=== PATIENT | female | born 1955 | race Caucasian/White ===

== ENCOUNTER 2017-10-29 03:32 | Inpatient (IN) | payer MEDICAID ==
[2017-10-29] VITALS (17 sets, daily range): BP systolic 67–141; BP diastolic 44–89
[~2017-10-29] VITALS: Ht 167.6 cm; Wt 56.5 kg
[~2017-10-29 03:32] MED LIST: ATRIN INH; BUDE10.2 INH; COMIN IH; MONT10TA21 PO; [UNRECOGNIZED DRUG - CODE] MC
[2017-10-29] MEDS ORDERED: methylPREDNISolone sod succ 125mg/2ml vial IV ONE (03:45)
[2017-10-29] MEDS ORDERED: midazolam 100mg in NS 100ml 100 ML IV PRN (04:05)
[2017-10-29] MEDS ORDERED: MIDAZolam 5mg/ml 2ml vial IV ONE (04:05)
[2017-10-29] MEDS ORDERED: fentaNYL/PF 50MCG/1 ML 2ML syringe IV ONE (04:05)
[2017-10-29 04:25] LABS: BASOPHILS % (AUTO) 0.2 % (0-1); EOSINOPHILS # (AUTO) 0.3 X10'3 (0-0.9); EOSINOPHILS % (AUTO) 1.4 % (0-6); HEMATOCRIT 39.4 % (35.0-45.0); HEMOGLOBIN 12.4 g/dl (12.0-16.0); MEAN CORPUSCULAR HEMOGLOBIN 27.6 PG (27.0-31.0); MEAN CORPUSCULAR HGB CONC 31.6 % (33.0-36.5); MEAN CORPUSCULAR VOLUME 87.3 FL (78-98); MEAN PLATELET VOLUME 10.1 FL (7.4-10.4); MONOCYTES # (AUTO) 0.2 X10'3 (0-0.9); MONOCYTES % (AUTO) 1.1 % (2-12); NEUTROPHILS # (AUTO) 17.7 X10'3 (1.8-7.7); NEUTROPHILS % (AUTO) 83.3 % (42-75); PLATELET COUNT 141 X10'3 (140-440); RED BLOOD COUNT 4.51 X10'6 (4.20-5.60); RED CELL DISTRIBUTION WIDTH 16.5 % (11.5-14.5); WHITE BLOOD COUNT 21.2 X10'3 (4.5-11.0)
[2017-10-29] MEDS ORDERED: MIDAZOLAM IV SCH (04:30)
[2017-10-29] MEDS ORDERED: NORMAL SALINE IV SCH (04:30)
[2017-10-29] MEDS ORDERED: MIDAZOLAM IV PRN (04:30)
[2017-10-29] MEDS ORDERED: NORMAL SALINE IV PRN (04:30)
[2017-10-29 04:31] LABS: ABG BASE EXCESS 6.3 mmol/L (-2.0-3.0); ABG HCO3 35.4 mmol/L (22.0-26.0); ABG PCO2 (T) 80.3 mmHg (32.0-45.0); ABG PO2 (T) 223.7 mmHg (83-108); ALLEN'S TEST Positive; FCOHb 0.9 % (0.5-1.5); FMetHb 0.1 % (0.3-1.12); MINUTE VOLUME 7 L/min; PATIENT TEMPERATURE 36.5; PEEP 5 cm H2O; RESPIRATORY RATE 16 b/min; RESPIRATORY RATE (OBSERVED) 18 b/min; TIDAL VOLUME 400 mL; TOTAL HEMOGLOBIN 10.3 G/dl (12.0-16.0)
[2017-10-29 04:35] LABS: PARTIAL THROMBOPLASTIN TIME 23 SECONDS (22-32); PROTHROMBIN TIME 10.4 SECONDS (9.0-12.0)
[2017-10-29 04:43] LABS: CLARITY,URINE CLOUDY (Clear); COLOR,URINE YELLOW (Yellow); GLUCOSE, URINE NEGATIVE (Neg); KETONES,URINE NEGATIVE (Neg); LEUKOCYTE ESTERASE ,URINE NEGATIVE (Neg); NITRITES, URINE NEGATIVE (Neg); OCCULT BLOOD,URINE MODERATE (Neg); PH,URINE 7.5 (4.8-8.0); PROTEIN,URINE 30 mg/dl (Neg)
[2017-10-29] MEDS ORDERED: levoFLOXACIN-Levaquin 750MG/D5 150 ML IV STA (04:47)
[2017-10-29 04:49] LABS: BACTERIA,URINE FEW /HPF (Neg); SQUAMOUS EPITHELIAL CELL,UR FEW /LPF (FEW); UA COLLECTION TYPE FOLEY CATH; WBC,URINE NONE SEEN /HPF (0-4)
[2017-10-29 04:50] LABS: ALANINE AMINOTRANSFERASE 61 U/L (12-78); ALBUMIN 3.2 G/DL (3.4-5.0); ALBUMIN/GLOBULIN RATIO 1.1 (1.1-1.5); ALKALINE PHOSPHATASE 68 IU/L (46-116); ANION GAP -1 (8-16); ASPARTATE AMINO TRANSFERASE 21 U/L (10-37); BILIRUBIN,TOTAL 1.2 MG/DL (0.1-1.0); BLOOD UREA NITROGEN 21 MG/DL (7-18); BUN/CREATININE RATIO 45.7 (6.6-38.0); CALCIUM 9.3 MG/DL (8.5-10.1); CHLORIDE 110 MMOL/L (99-107); CREATININE 0.46 MG/DL (0.40-0.90); GLUCOSE 124 MG/DL (70-104); SODIUM 152 MMOL/L (135-145); TOTAL PROTEIN 6.1 G/DL (6.4-8.2); eGFR > 90 ML/MIN
[2017-10-29 04:50] LABS: AMORPHOUS PHOSPHATES 4+
[2017-10-29 04:56] LABS: ANISOCYTOSIS 1+; PLATELET ESTIMATE NORMAL; TOTAL CELLS COUNTED 100
[2017-10-29 04:57] LABS: TOTAL CARBON DIOXIDE 42.6 MMOL/L (24-32)
[2017-10-29 05:56] LABS: ABG BASE EXCESS 10.4 mmol/L (-2.0-3.0); ABG HCO3 32.1 mmol/L (22.0-26.0); ABG OXYGEN SATURATION 98.9 % (95-98); ABG PCO2 (T) 31.6 mmHg (32.0-45.0); ABG PH (T) 7.623 (7.350-7.450); ABG PO2 (T) 156.1 mmHg (83-108); ALLEN'S TEST Positive; FCOHb 0.7 % (0.5-1.5); FMetHb 0.3 % (0.3-1.12); FO2Hb 97.9 % (94-100); MINUTE VOLUME 10 L/min; PATIENT TEMPERATURE 36.5; PEEP 5 cm H2O; RESPIRATORY RATE 20 b/min; RESPIRATORY RATE (OBSERVED) 20 b/min; TIDAL VOLUME 450 mL; TOTAL HEMOGLOBIN 10.8 G/dl (12.0-16.0)
[2017-10-29] MEDS ORDERED: etomidate 2mg/ml inj. ONE ×2 (06:00→15:00)
[2017-10-29] MEDS ORDERED: ACET250T3 PO (06:03)
[2017-10-29] MEDS ORDERED: DILT180C95 PO (06:04)
[2017-10-29] MEDS ORDERED: FLUT16SP2 BOTHNARES (06:04)
[2017-10-29] MEDS ORDERED: INSU3INS2 (06:07)
[2017-10-29] MEDS ORDERED: INSU100V30 SQ (06:08)
[2017-10-29] MEDS ORDERED: PRED5TAB PO ×2 (06:09→06:10)
[2017-10-29] MEDS ORDERED: OMEP-50 (06:09)
[2017-10-29] MEDS ORDERED: LACT1CAP65 PO (06:11)
[2017-10-29] MEDS ORDERED: POTA10IV IV (06:13)
[2017-10-29] MEDS ORDERED: ACET-2119 PO (06:15)
[2017-10-29] MEDS ORDERED: normal saline 1000ml 1,000 ML IV SCH (06:29)
[2017-10-29] MEDS ORDERED: magnesium 2GM in 50ml NS 50 ML IV PRN (06:30)
[2017-10-29] MEDS: K, MAG and/or Phos replacement - Verify level? MC SCH ×2 (06:30→08:00)
[2017-10-29] MEDS ORDERED: magnesium 4gm in 100ml NS 100 ML IV PRN (06:30)
[2017-10-29] MEDS ORDERED: albuterol 2.5 MG/3 ML nebule NEB PRN (06:30)
[2017-10-29] MEDS ORDERED: potassium Cl 40MEQ/NS 500ml 500 ML IV PRN ×2 (06:30)
[2017-10-29] MEDS ORDERED: fentaNYL/PF 50MCG/1 ML 2ML syringe IV PRN (06:40)
[2017-10-29] MEDS ORDERED: midazolam 2 mg/2 ml injection IV ONE (06:40)
[2017-10-29] MEDS ORDERED: insulin Lispro (HumaLOG) vial - multi-dose SQ SCH (06:45)
[2017-10-29] MEDS ORDERED: MESSAGE TO PHARMACY PO ONE (06:45)
[2017-10-29] MEDS ORDERED: dextrose 50%-water 50ml dispensing syringe IV PRN ×2 (06:45)
[2017-10-29] MEDS ORDERED: glucagon, human recombinant 1mg kit SUBCUT PRN (06:45)
[2017-10-29] MEDS: methylPREDNISolone sod succ 125mg/2ml vial IV SCH ×4 (08:00→19:56)
[2017-10-29] MEDS: diltiazem CD 180mg cap (once-daily) PO SCH (08:00)
[2017-10-29] MEDS: ipratropium/albuterol 3ml nebule NEB SCH ×4 (08:00→18:59)
[2017-10-29] MEDS: levoFLOXACIN-Levaquin 750MG/D5 150 ML IV SCH (08:35)
[2017-10-29] MEDS: cefepime 1GM/NS ADD-VANTAGE 100 ML IV SCH ×2 (08:35→16:19)
[2017-10-29] MEDS: pantoprazole 40 MG vial IV SCH (08:36)
[2017-10-29] MEDS: FENTANYL-0.9 % NACL/PF 100 ML IV PRN (08:36)
[2017-10-29] MEDS: midazolam 100mg in NS 100ml 100 ML IV PRN (08:36)
[2017-10-29] MEDS: heparin, porcine 5000 units/ml vial SQ SCH ×2 (08:37→19:57)
[2017-10-29 09:01] LABS: HEMOGLOBIN A1C 6.8 % (4.5-6.2)
[2017-10-29 09:06] LABS: ABG BASE EXCESS 12.6 mmol/L (-2.0-3.0); ABG HCO3 34.6 mmol/L (22.0-26.0); ABG OXYGEN SATURATION 98.8 % (95-98); ABG PCO2 (T) 34.6 mmHg (32.0-45.0); ABG PH (T) 7.618 (7.350-7.450); ABG PO2 (T) 113.2 mmHg (83-108); ALLEN'S TEST Positive; FCOHb 0.8 % (0.5-1.5); FMetHb 0.1 % (0.3-1.12); FO2Hb 97.9 % (94-100); PEEP 5 cm H2O; RESPIRATORY RATE 14 b/min; RESPIRATORY RATE (OBSERVED) 14 b/min; TIDAL VOLUME 450 mL
[2017-10-29] MEDS ORDERED: NORepinephrine 8mg/ 250ml NS 250 ML IV SCH (09:10)
[2017-10-29 10:16] LABS: MAGNESIUM 1.6 MG/DL (1.5-2.4)
[2017-10-29 10:17] LABS: PHOSPHORUS 0.9 MG/DL (2.3-4.5)
[2017-10-29] MEDS ORDERED: sodium phosphate inj. 15 MMOL in dextrose 5%-water 150 ML IV PRN (10:18)
[2017-10-29] MEDS ORDERED: sodium phosphate inj. 30 MMOL in dextrose 5%-water 250 ML IV PRN (10:18)
[2017-10-29] MEDS: ringers solution, lacted 1,000 ML IV SCH ×2 (11:21→21:37)
[2017-10-29 12:05] LABS: ABG BASE EXCESS 7.7 mmol/L (-2.0-3.0); ABG HCO3 31.3 mmol/L (22.0-26.0); ABG OXYGEN SATURATION 96.2 % (95-98); ABG PO2 (T) 71.2 mmHg (83-108); ALLEN'S TEST Positive; FCOHb 0.9 % (0.5-1.5); FMetHb 0.1 % (0.3-1.12); FO2Hb 95.2 % (94-100); PATIENT TEMPERATURE 36.5; PEEP 5 cm H2O; RESPIRATORY RATE 12 b/min; RESPIRATORY RATE (OBSERVED) 12 b/min; TIDAL VOLUME 400 mL; TOTAL HEMOGLOBIN 10.5 G/dl (12.0-16.0)
[2017-10-29] MEDS: insulin regular, human vial - multi-dose SQ SCH ×2 (14:42→20:17)
[2017-10-29] MEDS ORDERED: NORepinephrine 1 mg/ml inj IV ONE (15:00)
[2017-10-29] MEDS ORDERED: amiodarone 50MG/ML inj IV ONE (15:00)
[2017-10-29] MEDS ORDERED: rocuronium 10mg/ml inj IV ONE (15:00)
[2017-10-29] MEDS: lactobacillus rhamnosus 10,000 MMU CELLS/CAPSULE PO SCH (19:56)
[2017-10-29] MEDS: insulin glargine (Lantus) pen - multi-dose SQ SCH (21:40)
[2017-10-30] VITALS (23 sets, daily range): BP systolic 97–143; BP diastolic 53–75
[2017-10-30] MEDS: cefepime 1GM/NS ADD-VANTAGE 100 ML IV SCH ×2 (00:13→07:41)
[2017-10-30] MEDS: FENTANYL-0.9 % NACL/PF 100 ML IV PRN (01:21)
[2017-10-30] MEDS: methylPREDNISolone sod succ 125mg/2ml vial IV SCH ×4 (02:40→20:12)
[2017-10-30] MEDS: insulin regular, human vial - multi-dose SQ SCH ×4 (02:52→20:35)
[2017-10-30] MEDS: ipratropium/albuterol 3ml nebule NEB SCH ×4 (03:00→19:27)
[2017-10-30 03:11] LABS: ABG BASE EXCESS 7.3 mmol/L (-2.0-3.0); ABG HCO3 32.1 mmol/L (22.0-26.0); ABG OXYGEN SATURATION 95.7 % (95-98); ABG PCO2 (T) 46.9 mmHg (32.0-45.0); ABG PH (T) 7.454 (7.350-7.450); ALLEN'S TEST Positive; FCOHb 0.8 % (0.5-1.5); FMetHb 0.1 % (0.3-1.12); FO2Hb 94.8 % (94-100); MINUTE VOLUME 6 L/min; PATIENT TEMPERATURE 37.2; PEEP 5 cm H2O; RESPIRATORY RATE 12 b/min; RESPIRATORY RATE (OBSERVED) 12 b/min; TIDAL VOLUME 400 mL; TOTAL HEMOGLOBIN 10.7 G/dl (12.0-16.0)
[2017-10-30 03:35] LABS: INR 1.1 INR; PARTIAL THROMBOPLASTIN TIME 30 SECONDS (22-32); PROTHROMBIN TIME 11.4 SECONDS (9.0-12.0)
[2017-10-30 03:39] LABS: ALANINE AMINOTRANSFERASE 40 U/L (12-78); ALBUMIN 2.3 G/DL (3.4-5.0); ALKALINE PHOSPHATASE 59 IU/L (46-116); ANION GAP 3 (8-16); ASPARTATE AMINO TRANSFERASE 18 U/L (10-37); BILIRUBIN,TOTAL 1.2 MG/DL (0.1-1.0); BLOOD UREA NITROGEN 23 MG/DL (7-18); BUN/CREATININE RATIO 43.4 (6.6-38.0); CALCIUM 8.2 MG/DL (8.5-10.1); CHLORIDE 108 MMOL/L (99-107); CREATININE 0.53 MG/DL (0.40-0.90); GLUCOSE 237 MG/DL (70-104); MAGNESIUM 1.4 MG/DL (1.5-2.4); PHOSPHORUS 2.2 MG/DL (2.3-4.5); POTASSIUM 3.8 MMOL/L (3.5-5.1); SODIUM 147 MMOL/L (135-145); TOTAL CARBON DIOXIDE 35.6 MMOL/L (24-32); TOTAL PROTEIN 4.7 G/DL (6.4-8.2); eGFR > 90 ML/MIN
[2017-10-30] MEDS: mineral oil/petrolatum ophthal oint EACHEYE SCH ×3 (07:29→20:00)
[2017-10-30] MEDS: K, MAG and/or Phos replacement - Verify level? MC SCH (07:31)
[2017-10-30] MEDS: diltiazem CD 180mg cap (once-daily) PO SCH (07:32)
[2017-10-30] MEDS: ringers solution, lacted 1,000 ML IV SCH (07:40)
[2017-10-30] MEDS: pantoprazole 40 MG vial IV SCH (07:41)
[2017-10-30] MEDS: levoFLOXACIN-Levaquin 750MG/D5 150 ML IV SCH (07:41)
[2017-10-30] MEDS: lactobacillus rhamnosus 10,000 MMU CELLS/CAPSULE PO SCH ×2 (07:41→20:13)
[2017-10-30] MEDS: heparin, porcine 5000 units/ml vial SQ SCH ×2 (07:44→20:13)
[2017-10-30 11:08] LABS: BASOPHILS % (AUTO) 0 % (0-1); EOSINOPHILS # (AUTO) 0.1 X10'3 (0-0.9); HEMOGLOBIN 9.5 g/dl (12.0-16.0); LYMPHOCYTES # (AUTO) 0.2 X10'3 (1.1-4.8); LYMPHOCYTES % (AUTO) 2.9 % (21-51); MEAN CORPUSCULAR HEMOGLOBIN 27.4 PG (27.0-31.0); MEAN CORPUSCULAR HGB CONC 32.7 % (33.0-36.5); MEAN CORPUSCULAR VOLUME 83.7 FL (78-98); MEAN PLATELET VOLUME 9.6 FL (7.4-10.4); MONOCYTES # (AUTO) 0.1 X10'3 (0-0.9); MONOCYTES % (AUTO) 1.6 % (2-12); NEUTROPHILS # (AUTO) 5.9 X10'3 (1.8-7.7); NEUTROPHILS % (AUTO) 94.5 % (42-75); PLATELET COUNT 88 X10'3 (140-440); RED BLOOD COUNT 3.46 X10'6 (4.20-5.60); WHITE BLOOD COUNT 6.3 X10'3 (4.5-11.0)
[2017-10-30] MEDS: linezolid 600mg/300ml PREMIX 300 ML IV SCH ×2 (13:19→20:13)
[2017-10-30] MEDS: diltiazem 30mg tablet PO SCH ×2 (14:20→20:13)
[2017-10-30] MEDS: insulin glargine (Lantus) pen - multi-dose SQ SCH (22:35)
[2017-10-31] VITALS (21 sets, daily range): BP systolic 86–130; BP diastolic 49–80
[2017-10-31] MEDS: midazolam 100mg in NS 100ml 100 ML IV PRN (00:48)
[2017-10-31] MEDS: FENTANYL-0.9 % NACL/PF 100 ML IV PRN (00:48)
[2017-10-31] MEDS: mineral oil/petrolatum ophthal oint EACHEYE SCH ×4 (02:00→20:00)
[2017-10-31] MEDS: methylPREDNISolone sod succ 125mg/2ml vial IV SCH ×4 (02:02→20:42)
[2017-10-31] MEDS: insulin regular, human vial - multi-dose SQ SCH ×2 (02:12→09:01)
[2017-10-31] MEDS: diltiazem 30mg tablet PO SCH ×4 (02:13→20:42)
[2017-10-31] MEDS: ipratropium/albuterol 3ml nebule NEB SCH ×4 (03:03→19:56)
[2017-10-31 03:24] LABS: BASOPHILS % (AUTO) 0 % (0-1); EOSINOPHILS # (AUTO) 0.2 X10'3 (0-0.9); EOSINOPHILS % (AUTO) 1.9 % (0-6); HEMATOCRIT 28.6 % (35.0-45.0); HEMOGLOBIN 9.4 g/dl (12.0-16.0); LYMPHOCYTES # (AUTO) 0.3 X10'3 (1.1-4.8); LYMPHOCYTES % (AUTO) 3.7 % (21-51); MEAN CORPUSCULAR HEMOGLOBIN 27.3 PG (27.0-31.0); MEAN CORPUSCULAR HGB CONC 32.9 % (33.0-36.5); MONOCYTES # (AUTO) 0.2 X10'3 (0-0.9); MONOCYTES % (AUTO) 1.9 % (2-12); NEUTROPHILS # (AUTO) 7.5 X10'3 (1.8-7.7); NEUTROPHILS % (AUTO) 92.5 % (42-75); PLATELET COUNT 89 X10'3 (140-440); RED BLOOD COUNT 3.45 X10'6 (4.20-5.60); RED CELL DISTRIBUTION WIDTH 16.2 % (11.5-14.5); WHITE BLOOD COUNT 8.1 X10'3 (4.5-11.0)
[2017-10-31 03:31] LABS: PARTIAL THROMBOPLASTIN TIME 28 SECONDS (22-32); PROTHROMBIN TIME 10.4 SECONDS (9.0-12.0)
[2017-10-31 03:37] LABS: ALANINE AMINOTRANSFERASE 41 U/L (12-78); ALBUMIN 2.3 G/DL (3.4-5.0); ALKALINE PHOSPHATASE 69 IU/L (46-116); ANION GAP 5 (8-16); ASPARTATE AMINO TRANSFERASE 16 U/L (10-37); BILIRUBIN,TOTAL 0.7 MG/DL (0.1-1.0); BLOOD UREA NITROGEN 19 MG/DL (7-18); BUN/CREATININE RATIO 42.2 (6.6-38.0); CALCIUM 8.1 MG/DL (8.5-10.1); CHLORIDE 107 MMOL/L (99-107); CREATININE 0.45 MG/DL (0.40-0.90); GLUCOSE 151 MG/DL (70-104); MAGNESIUM 2.5 MG/DL (1.5-2.4); PHOSPHORUS 2.4 MG/DL (2.3-4.5); POTASSIUM 3.6 MMOL/L (3.5-5.1); PREALBUMIN 18.7 MG/DL (19-36); SODIUM 149 MMOL/L (135-145); TOTAL CARBON DIOXIDE 36.9 MMOL/L (24-32); TOTAL PROTEIN 4.7 G/DL (6.4-8.2); eGFR > 90 ML/MIN
[2017-10-31 03:50] LABS: ABG BASE EXCESS 7.9 mmol/L (-2.0-3.0); ABG HCO3 33.7 mmol/L (22.0-26.0); ABG PO2 (T) 64.8 mmHg (83-108); ALLEN'S TEST Positive; FCOHb 0.3 % (0.5-1.5); FMetHb 0.1 % (0.3-1.12); FO2Hb 91.6 % (94-100); MINUTE VOLUME 5 L/min; PATIENT TEMPERATURE 36.9; PEEP 5 cm H2O; RESPIRATORY RATE 125 b/min; RESPIRATORY RATE (OBSERVED) 12 b/min; TIDAL VOLUME 350 mL; TOTAL HEMOGLOBIN 10.3 G/dl (12.0-16.0)
[2017-10-31] MEDS: levoFLOXACIN-Levaquin 750MG/D5 150 ML IV SCH (07:42)
[2017-10-31] MEDS: K, MAG and/or Phos replacement - Verify level? MC SCH (08:00)
[2017-10-31] MEDS: lactobacillus rhamnosus 10,000 MMU CELLS/CAPSULE PO SCH ×2 (08:31→20:42)
[2017-10-31] MEDS: pantoprazole 40 MG vial IV SCH (08:36)
[2017-10-31] MEDS: heparin, porcine 5000 units/ml vial SQ SCH ×2 (08:36→20:43)
[2017-10-31] MEDS: linezolid 600mg/300ml PREMIX 300 ML IV SCH ×2 (08:39→20:42)
[2017-10-31] MEDS: dextrose ORAL solution 15 GM/59 ML bottle PO PRN (17:36)
[2017-10-31] MEDS: insulin glargine (Lantus) pen - multi-dose SQ SCH (21:00)
[2017-11-01] VITALS (24 sets, daily range): BP systolic 94–145; BP diastolic 52–79
[2017-11-01] MEDS: ipratropium/albuterol 3ml nebule NEB SCH ×4 (01:34→21:21)
[2017-11-01] MEDS: mineral oil/petrolatum ophthal oint EACHEYE SCH ×4 (02:00→20:32)
[2017-11-01] MEDS: diltiazem 30mg tablet PO SCH ×4 (02:37→20:31)
[2017-11-01] MEDS: methylPREDNISolone sod succ 125mg/2ml vial IV SCH ×4 (02:37→20:32)
[2017-11-01 03:00] LABS: BASOPHILS % (AUTO) 0 % (0-1); EOSINOPHILS # (AUTO) 0.2 X10'3 (0-0.9); EOSINOPHILS % (AUTO) 1.9 % (0-6); HEMATOCRIT 30.6 % (35.0-45.0); LYMPHOCYTES # (AUTO) 0.3 X10'3 (1.1-4.8); LYMPHOCYTES % (AUTO) 2.5 % (21-51); MEAN CORPUSCULAR HEMOGLOBIN 27.5 PG (27.0-31.0); MEAN CORPUSCULAR HGB CONC 32.7 % (33.0-36.5); MEAN CORPUSCULAR VOLUME 84.1 FL (78-98); MEAN PLATELET VOLUME 9.8 FL (7.4-10.4); MONOCYTES # (AUTO) 0.1 X10'3 (0-0.9); MONOCYTES % (AUTO) 1.3 % (2-12); NEUTROPHILS # (AUTO) 9.4 X10'3 (1.8-7.7); NEUTROPHILS % (AUTO) 94.3 % (42-75); PLATELET COUNT 101 X10'3 (140-440); RED BLOOD COUNT 3.64 X10'6 (4.20-5.60); RED CELL DISTRIBUTION WIDTH 16.9 % (11.5-14.5)
[2017-11-01 03:12] LABS: PARTIAL THROMBOPLASTIN TIME 26 SECONDS (22-32); PROTHROMBIN TIME 10.7 SECONDS (9.0-12.0)
[2017-11-01 03:18] LABS: ALANINE AMINOTRANSFERASE 42 U/L (12-78); ALBUMIN 2.5 G/DL (3.4-5.0); ALKALINE PHOSPHATASE 73 IU/L (46-116); ANION GAP 0 (8-16); ASPARTATE AMINO TRANSFERASE 14 U/L (10-37); BILIRUBIN,TOTAL 0.6 MG/DL (0.1-1.0); BLOOD UREA NITROGEN 21 MG/DL (7-18); BUN/CREATININE RATIO 41.2 (6.6-38.0); CALCIUM 8.7 MG/DL (8.5-10.1); CHLORIDE 110 MMOL/L (99-107); CREATININE 0.51 MG/DL (0.40-0.90); GLUCOSE 190 MG/DL (70-104); MAGNESIUM 2.2 MG/DL (1.5-2.4); PHOSPHORUS 2.3 MG/DL (2.3-4.5); POTASSIUM 4.3 MMOL/L (3.5-5.1); SODIUM 150 MMOL/L (135-145); TOTAL CARBON DIOXIDE 39.6 MMOL/L (24-32); TOTAL PROTEIN 4.9 G/DL (6.4-8.2); eGFR > 90 ML/MIN
[2017-11-01] MEDS: K, MAG and/or Phos replacement - Verify level? MC SCH (08:00)
[2017-11-01] MEDS: pantoprazole 40 MG vial IV SCH (08:16)
[2017-11-01] MEDS: levoFLOXACIN-Levaquin 750MG/D5 150 ML IV SCH (08:17)
[2017-11-01] MEDS: lactobacillus rhamnosus 10,000 MMU CELLS/CAPSULE PO SCH ×2 (08:17→20:32)
[2017-11-01] MEDS: heparin, porcine 5000 units/ml vial SQ SCH ×2 (08:22→20:31)
[2017-11-01] MEDS: ALPRAZolam 0.25mg tablet PO PRN ×2 (10:59→21:00)
[2017-11-01] MEDS: insulin glargine (Lantus) pen - multi-dose SQ SCH (21:17)
[2017-11-02] VITALS (16 sets, daily range): BP systolic 103–130; BP diastolic 60–88
[2017-11-02] MEDS: ipratropium/albuterol 3ml nebule NEB SCH ×4 (02:00→19:42)
[2017-11-02] MEDS: mineral oil/petrolatum ophthal oint EACHEYE SCH ×4 (02:00→19:50)
[2017-11-02] MEDS: diltiazem 30mg tablet PO SCH ×4 (02:09→19:37)
[2017-11-02] MEDS: methylPREDNISolone sod succ 125mg/2ml vial IV SCH ×2 (02:09→07:53)
[2017-11-02 05:49] LABS: BASOPHILS % (AUTO) 0 % (0-1); EOSINOPHILS # (AUTO) 0.1 X10'3 (0-0.9); EOSINOPHILS % (AUTO) 1.4 % (0-6); HEMATOCRIT 30.1 % (35.0-45.0); HEMOGLOBIN 9.9 g/dl (12.0-16.0); LYMPHOCYTES # (AUTO) 0.2 X10'3 (1.1-4.8); LYMPHOCYTES % (AUTO) 2.4 % (21-51); MEAN CORPUSCULAR HGB CONC 32.8 % (33.0-36.5); MEAN CORPUSCULAR VOLUME 85.3 FL (78-98); MONOCYTES # (AUTO) 0.2 X10'3 (0-0.9); MONOCYTES % (AUTO) 2.2 % (2-12); NEUTROPHILS # (AUTO) 7.7 X10'3 (1.8-7.7); PLATELET COUNT 104 X10'3 (140-440); RED BLOOD COUNT 3.53 X10'6 (4.20-5.60); RED CELL DISTRIBUTION WIDTH 16.3 % (11.5-14.5); WHITE BLOOD COUNT 8.2 X10'3 (4.5-11.0)
[2017-11-02 05:55] LABS: PARTIAL THROMBOPLASTIN TIME 26 SECONDS (22-32); PROTHROMBIN TIME 10.7 SECONDS (9.0-12.0)
[2017-11-02 06:14] LABS: ALANINE AMINOTRANSFERASE 40 U/L (12-78); ALBUMIN 2.5 G/DL (3.4-5.0); ALKALINE PHOSPHATASE 79 IU/L (46-116); ANION GAP 0 (8-16); ASPARTATE AMINO TRANSFERASE 15 U/L (10-37); BILIRUBIN,TOTAL 0.5 MG/DL (0.1-1.0); BLOOD UREA NITROGEN 19 MG/DL (7-18); BUN/CREATININE RATIO 39.6 (6.6-38.0); CALCIUM 9.2 MG/DL (8.5-10.1); CHLORIDE 108 MMOL/L (99-107); CREATININE 0.48 MG/DL (0.40-0.90); GLUCOSE 202 MG/DL (70-104); MAGNESIUM 1.9 MG/DL (1.5-2.4); POTASSIUM 4.6 MMOL/L (3.5-5.1); SODIUM 149 MMOL/L (135-145); TOTAL PROTEIN 5.1 G/DL (6.4-8.2); eGFR > 90 ML/MIN
[2017-11-02 06:17] LABS: TOTAL CARBON DIOXIDE 40.6 MMOL/L (24-32)
[2017-11-02] MEDS: lactobacillus rhamnosus 10,000 MMU CELLS/CAPSULE PO SCH ×2 (07:52→19:38)
[2017-11-02] MEDS: heparin, porcine 5000 units/ml vial SQ SCH ×2 (07:53→19:36)
[2017-11-02] MEDS: levoFLOXACIN-Levaquin 750MG/D5 150 ML IV SCH (07:53)
[2017-11-02] MEDS: pantoprazole 40 MG vial IV SCH (07:53)
[2017-11-02] MEDS: K, MAG and/or Phos replacement - Verify level? MC SCH (08:00)
[2017-11-02] MEDS: insulin regular, human vial - multi-dose SQ SCH ×3 (08:44→19:40)
[2017-11-02] MEDS: ALPRAZolam 0.25mg tablet PO PRN (14:39)
[2017-11-02] MEDS: insulin glargine (Lantus) pen - multi-dose SQ SCH (21:46)
[2017-11-03] VITALS (19 sets, daily range): BP systolic 78–124; BP diastolic 47–74
[2017-11-03] MEDS: ipratropium/albuterol 3ml nebule NEB SCH ×6 (00:36→22:45)
[2017-11-03] MEDS: diltiazem 30mg tablet PO SCH (01:39)
[2017-11-03] MEDS: ALPRAZolam 0.25mg tablet PO PRN (01:55)
[2017-11-03 05:46] LABS: BASOPHILS # (AUTO) 0.2 X10'3 (0-0.2); EOSINOPHILS % (AUTO) 0 % (0-6); HEMATOCRIT 32.1 % (35.0-45.0); HEMOGLOBIN 10.4 g/dl (12.0-16.0); LYMPHOCYTES # (AUTO) 0.6 X10'3 (1.1-4.8); LYMPHOCYTES % (AUTO) 6.7 % (21-51); MEAN CORPUSCULAR HEMOGLOBIN 27.6 PG (27.0-31.0); MEAN CORPUSCULAR HGB CONC 32.3 % (33.0-36.5); MEAN CORPUSCULAR VOLUME 85.7 FL (78-98); MONOCYTES # (AUTO) 0.5 X10'3 (0-0.9); MONOCYTES % (AUTO) 5.3 % (2-12); NEUTROPHILS # (AUTO) 7.3 X10'3 (1.8-7.7); PLATELET COUNT 127 X10'3 (140-440); RED BLOOD COUNT 3.75 X10'6 (4.20-5.60); RED CELL DISTRIBUTION WIDTH 16.1 % (11.5-14.5); WHITE BLOOD COUNT 8.5 X10'3 (4.5-11.0)
[2017-11-03 06:00] LABS: PARTIAL THROMBOPLASTIN TIME 24 SECONDS (22-32); PROTHROMBIN TIME 10.1 SECONDS (9.0-12.0)
[2017-11-03 06:03] LABS: ALANINE AMINOTRANSFERASE 43 U/L (12-78); ALBUMIN 2.7 G/DL (3.4-5.0); ALBUMIN/GLOBULIN RATIO 1.1 (1.1-1.5); ALKALINE PHOSPHATASE 99 IU/L (46-116); ASPARTATE AMINO TRANSFERASE 16 U/L (10-37); BILIRUBIN,TOTAL 0.4 MG/DL (0.1-1.0); BLOOD UREA NITROGEN 19 MG/DL (7-18); BUN/CREATININE RATIO 57.6 (6.6-38.0); CALCIUM 9.5 MG/DL (8.5-10.1); CHLORIDE 107 MMOL/L (99-107); CREATININE 0.33 MG/DL (0.40-0.90); GLUCOSE 187 MG/DL (70-104); POTASSIUM 4.2 MMOL/L (3.5-5.1); SODIUM 151 MMOL/L (135-145); TOTAL PROTEIN 5.2 G/DL (6.4-8.2); eGFR > 90 ML/MIN
[2017-11-03 06:15] LABS: ANION GAP -3 (8-16)
[2017-11-03 06:17] LABS: TOTAL CARBON DIOXIDE 46.9 MMOL/L (24-32)
[2017-11-03] MEDS: pantoprazole 40mg Tablet.DR PO SCH (07:30)
[2017-11-03] MEDS: heparin, porcine 5000 units/ml vial SQ SCH ×2 (08:00→20:21)
[2017-11-03] MEDS: K, MAG and/or Phos replacement - Verify level? MC SCH (08:00)
[2017-11-03] MEDS: mineral oil/petrolatum ophthal oint EACHEYE SCH ×3 (08:00→20:20)
[2017-11-03] MEDS: lactobacillus rhamnosus 10,000 MMU CELLS/CAPSULE PO SCH ×2 (08:00→20:21)
[2017-11-03] MEDS ORDERED: predniSONE 20 mg tablet PO SCH (08:30)
[2017-11-03 09:36] LABS: ABG BASE EXCESS 16.6 mmol/L (-2.0-3.0); ABG HCO3 51.5 mmol/L (22.0-26.0); ABG OXYGEN SATURATION 97.6 % (95-98); ABG PCO2 (T) > 150.0 mmHg (32.0-45.0); ABG PH (T) 7.132 (7.350-7.450); ABG PO2 (T) 126.3 mmHg (83-108); ALLEN'S TEST Positive; FCOHb 0.1 % (0.5-1.5); FLOW 4 L/min; FMetHb 0.2 % (0.3-1.12); FO2Hb 97.3 % (94-100); TOTAL HEMOGLOBIN 12.1 G/dl (12.0-16.0)
[2017-11-03] MEDS ORDERED: methylPREDNISolone sod succ 125mg/2ml vial ONE (09:39)
[2017-11-03] MEDS ORDERED: ipratropium/albuterol 3ml nebule NEB PRN (10:05)
[2017-11-03] MEDS: midazolam 100mg in NS 100ml 100 ML IV PRN (10:50)
[2017-11-03] MEDS: levoFLOXACIN 500mg tablet PO SCH (11:00)
[2017-11-03 11:06] LABS: ABG BASE EXCESS 13.1 mmol/L (-2.0-3.0); ABG OXYGEN SATURATION 99.4 % (95-98); ABG PCO2 (T) 82.1 mmHg (32.0-45.0); ALLEN'S TEST Positive; FCOHb 0.3 % (0.5-1.5); FMetHb 0.2 % (0.3-1.12); FO2Hb 98.9 % (94-100); MINUTE VOLUME 6 L/min; PATIENT TEMPERATURE 33.8; PEEP 5 cm H2O; RESPIRATORY RATE 12 b/min; RESPIRATORY RATE (OBSERVED) 12 b/min; TIDAL VOLUME 450 mL; TOTAL HEMOGLOBIN 10.5 G/dl (12.0-16.0)
[2017-11-03] MEDS: methylPREDNISolone sod succ 125mg/2ml vial IV SCH ×2 (14:17→20:21)
[2017-11-03] MEDS: FENTANYL-0.9 % NACL/PF 100 ML IV PRN (15:41)
[2017-11-03] MEDS ORDERED: NORepinephrine 8mg/ 250ml NS 250 ML IV SCH (17:45)
[2017-11-03] MEDS ORDERED: normal saline 1000ml 1,000 ML IV ONE (17:45)
[2017-11-03] MEDS: acetaZOLAMIDE IV 500mg inj IV SCH (20:21)
[2017-11-03] MEDS: normal saline 1000ml 1,000 ML IV SCH (20:26)
[2017-11-03] MEDS: insulin regular, human vial - multi-dose SQ SCH (20:45)
[2017-11-03] MEDS: insulin glargine (Lantus) pen - multi-dose SQ SCH (20:46)
[2017-11-04] VITALS (24 sets, daily range): BP systolic 60–140; BP diastolic 41–83
[2017-11-04] MEDS: mineral oil/petrolatum ophthal oint EACHEYE SCH ×4 (02:23→20:16)
[2017-11-04] MEDS: methylPREDNISolone sod succ 125mg/2ml vial IV SCH ×4 (02:23→20:13)
[2017-11-04] MEDS: insulin regular, human vial - multi-dose SQ SCH ×4 (02:30→21:21)
[2017-11-04 02:47] LABS: BASOPHILS % (AUTO) 0 % (0-1); EOSINOPHILS # (AUTO) 0.2 X10'3 (0-0.9); EOSINOPHILS % (AUTO) 1.8 % (0-6); HEMATOCRIT 28.8 % (35.0-45.0); HEMOGLOBIN 9.4 g/dl (12.0-16.0); LYMPHOCYTES # (AUTO) 0.4 X10'3 (1.1-4.8); LYMPHOCYTES % (AUTO) 4.7 % (21-51); MEAN CORPUSCULAR HEMOGLOBIN 27.6 PG (27.0-31.0); MEAN CORPUSCULAR HGB CONC 32.8 % (33.0-36.5); MEAN PLATELET VOLUME 8.4 FL (7.4-10.4); MONOCYTES # (AUTO) 0.2 X10'3 (0-0.9); MONOCYTES % (AUTO) 2.5 % (2-12); NEUTROPHILS # (AUTO) 7.5 X10'3 (1.8-7.7); PLATELET COUNT 145 X10'3 (140-440); RED BLOOD COUNT 3.43 X10'6 (4.20-5.60); RED CELL DISTRIBUTION WIDTH 15.6 % (11.5-14.5); WHITE BLOOD COUNT 8.3 X10'3 (4.5-11.0)
[2017-11-04] MEDS: ipratropium/albuterol 3ml nebule NEB SCH ×6 (02:50→23:44)
[2017-11-04 02:58] LABS: INR 1.1 INR; PARTIAL THROMBOPLASTIN TIME 24 SECONDS (22-32); PROTHROMBIN TIME 11.1 SECONDS (9.0-12.0)
[2017-11-04 03:06] LABS: ALANINE AMINOTRANSFERASE 41 U/L (12-78); ALBUMIN 2.3 G/DL (3.4-5.0); ALKALINE PHOSPHATASE 69 IU/L (46-116); ANION GAP 2 (8-16); ASPARTATE AMINO TRANSFERASE 17 U/L (10-37); BILIRUBIN,TOTAL 1.1 MG/DL (0.1-1.0); BLOOD UREA NITROGEN 19 MG/DL (7-18); BUN/CREATININE RATIO 36.5 (6.6-38.0); CALCIUM 8.7 MG/DL (8.5-10.1); CHLORIDE 109 MMOL/L (99-107); CREATININE 0.52 MG/DL (0.40-0.90); GLUCOSE 156 MG/DL (70-104); MAGNESIUM 1.6 MG/DL (1.5-2.4); POTASSIUM 3.4 MMOL/L (3.5-5.1); PREALBUMIN 21.5 MG/DL (19-36); SODIUM 149 MMOL/L (135-145); TOTAL CARBON DIOXIDE 37.9 MMOL/L (24-32); TOTAL PROTEIN 4.6 G/DL (6.4-8.2); eGFR > 90 ML/MIN
[2017-11-04 03:30] LABS: ABG HCO3 30.7 mmol/L (22.0-26.0); ABG OXYGEN SATURATION 94.8 % (95-98); ABG PCO2 (T) 33.7 mmHg (32.0-45.0); ABG PH (T) 7.573 (7.350-7.450); ABG PO2 (T) 63.7 mmHg (83-108); ALLEN'S TEST P; FCOHb 0.3 % (0.5-1.5); FMetHb 0.3 % (0.3-1.12); FO2Hb 94.2 % (94-100); PATIENT TEMPERATURE 35.9; PEEP 5 cm H2O; RESPIRATORY RATE 12 b/min; TIDAL VOLUME 450 mL; TOTAL HEMOGLOBIN 10.4 G/dl (12.0-16.0)
[2017-11-04] MEDS ORDERED: potassium Cl 40MEQ/250ML bag 250 ML IV PRN (03:50)
[2017-11-04] MEDS ORDERED: potassium Cl 40MEQ/250ML bag 250 ML IV ONE (03:59)
[2017-11-04] MEDS: midazolam 100mg in NS 100ml 100 ML IV PRN (05:15)
[2017-11-04] MEDS: normal saline 1000ml 1,000 ML IV SCH ×2 (07:05→12:04)
[2017-11-04] MEDS: K, MAG and/or Phos replacement - Verify level? MC SCH (08:00)
[2017-11-04] MEDS: acetaZOLAMIDE IV 500mg inj IV SCH ×2 (09:03→20:16)
[2017-11-04] MEDS: pantoprazole 40mg Tablet.DR PO SCH (09:04)
[2017-11-04] MEDS: heparin, porcine 5000 units/ml vial SQ SCH ×2 (09:04→20:15)
[2017-11-04] MEDS: lactobacillus rhamnosus 10,000 MMU CELLS/CAPSULE PO SCH ×2 (09:05→20:15)
[2017-11-04] MEDS ORDERED: sodium phosphate inj. 30 MMOL in dextrose 5%-water 250 ML IV PRN (09:38)
[2017-11-04] MEDS ORDERED: sodium phosphate inj. 15 MMOL in dextrose 5%-water 150 ML IV PRN (09:38)
[2017-11-04] MEDS: levoFLOXACIN 500mg tablet PO SCH (12:07)
[2017-11-04] MEDS: FENTANYL-0.9 % NACL/PF 100 ML IV PRN ×2 (12:48→22:22)
[2017-11-04] MEDS ORDERED: mineral oil/petrolatum ophthal oint EACHEYE SCH (14:00)
[2017-11-04] MEDS: insulin glargine (Lantus) pen - multi-dose SQ SCH (21:19)
[2017-11-05] VITALS (23 sets, daily range): BP systolic 86–124; BP diastolic 48–69
[2017-11-05] MEDS: normal saline 1000ml 1,000 ML IV SCH (01:20)
[2017-11-05] MEDS: ipratropium/albuterol 3ml nebule NEB SCH ×5 (02:46→20:31)
[2017-11-05] MEDS: mineral oil/petrolatum ophthal oint EACHEYE SCH ×2 (02:52→07:36)
[2017-11-05] MEDS: methylPREDNISolone sod succ 125mg/2ml vial IV SCH ×4 (02:52→19:26)
[2017-11-05] MEDS: insulin regular, human vial - multi-dose SQ SCH ×2 (02:56→07:48)
[2017-11-05] MEDS: midazolam 100mg in NS 100ml 100 ML IV PRN (03:01)
[2017-11-05 04:08] LABS: BASOPHILS % (AUTO) 0 % (0-1); EOSINOPHILS # (AUTO) 0.2 X10'3 (0-0.9); EOSINOPHILS % (AUTO) 1.6 % (0-6); HEMATOCRIT 27.5 % (35.0-45.0); HEMOGLOBIN 9.2 g/dl (12.0-16.0); LYMPHOCYTES # (AUTO) 0.2 X10'3 (1.1-4.8); LYMPHOCYTES % (AUTO) 2.2 % (21-51); MEAN CORPUSCULAR HEMOGLOBIN 27.7 PG (27.0-31.0); MEAN CORPUSCULAR HGB CONC 33.4 % (33.0-36.5); MEAN CORPUSCULAR VOLUME 82.9 FL (78-98); MEAN PLATELET VOLUME 8.3 FL (7.4-10.4); MONOCYTES # (AUTO) 0.2 X10'3 (0-0.9); MONOCYTES % (AUTO) 1.9 % (2-12); NEUTROPHILS % (AUTO) 94.3 % (42-75); PLATELET COUNT 127 X10'3 (140-440); RED BLOOD COUNT 3.31 X10'6 (4.20-5.60); RED CELL DISTRIBUTION WIDTH 16.4 % (11.5-14.5); WHITE BLOOD COUNT 9.5 X10'3 (4.5-11.0)
[2017-11-05 04:19] LABS: PARTIAL THROMBOPLASTIN TIME 24 SECONDS (22-32); PROTHROMBIN TIME 10.5 SECONDS (9.0-12.0)
[2017-11-05 04:25] LABS: ALANINE AMINOTRANSFERASE 38 U/L (12-78); ALBUMIN 2.3 G/DL (3.4-5.0); ALBUMIN/GLOBULIN RATIO 0.9 (1.1-1.5); ALKALINE PHOSPHATASE 83 IU/L (46-116); ANION GAP 2 (8-16); ASPARTATE AMINO TRANSFERASE 11 U/L (10-37); BILIRUBIN,TOTAL 0.5 MG/DL (0.1-1.0); BLOOD UREA NITROGEN 18 MG/DL (7-18); BUN/CREATININE RATIO 40.9 (6.6-38.0); CALCIUM 8.4 MG/DL (8.5-10.1); CHLORIDE 109 MMOL/L (99-107); CREATININE 0.44 MG/DL (0.40-0.90); GLUCOSE 222 MG/DL (70-104); MAGNESIUM 1.6 MG/DL (1.5-2.4); PHOSPHORUS 2.8 MG/DL (2.3-4.5); POTASSIUM 3.5 MMOL/L (3.5-5.1); SODIUM 146 MMOL/L (135-145); TOTAL CARBON DIOXIDE 34.8 MMOL/L (24-32); TOTAL PROTEIN 4.8 G/DL (6.4-8.2); eGFR > 90 ML/MIN
[2017-11-05 04:30] LABS: ABG BASE EXCESS 0.5 mmol/L (-2.0-3.0); ABG HCO3 26.5 mmol/L (22.0-26.0); ABG OXYGEN SATURATION 92.4 % (95-98); ABG PCO2 (T) 48.4 mmHg (32.0-45.0); ABG PH (T) 7.355 (7.350-7.450); ABG PO2 (T) 69.6 mmHg (83-108); ALLEN'S TEST Positive; FO2Hb 92.4 % (94-100); MINUTE VOLUME 5 L/min; PATIENT TEMPERATURE 36.9; PEEP 5 cm H2O; RESPIRATORY RATE 10 b/min; RESPIRATORY RATE (OBSERVED) 11 b/min; TIDAL VOLUME 400 mL; TOTAL HEMOGLOBIN 10.4 G/dl (12.0-16.0)
[2017-11-05] MEDS: lactobacillus rhamnosus 10,000 MMU CELLS/CAPSULE PO SCH ×2 (07:35→19:27)
[2017-11-05] MEDS: acetaZOLAMIDE IV 500mg inj IV SCH ×2 (07:35→19:24)
[2017-11-05] MEDS: pantoprazole 40mg Tablet.DR PO SCH (07:35)
[2017-11-05] MEDS: heparin, porcine 5000 units/ml vial SQ SCH ×2 (07:35→19:28)
[2017-11-05] MEDS: K, MAG and/or Phos replacement - Verify level? MC SCH (07:36)
[2017-11-05] MEDS ORDERED: furosemide 20 MG/2 ML vial IV ONE (08:10)
[2017-11-05] MEDS: fluconazole 100mg tablet PO SCH (09:27)
[2017-11-05] MEDS: dexmedetomidin/NS 400mcg/100ml 100 ML IV SCH (10:31)
[2017-11-05] MEDS: levoFLOXACIN 500mg tablet PO SCH (12:27)
[2017-11-05] MEDS: Protein Smoothie (high protein) 240ml (8oz) cup PO SCH ×2 (13:00→18:00)
[2017-11-05] MEDS ORDERED: NORepinephrine 8mg/ 250ml NS 250 ML IV SCH (14:55)
[2017-11-05] MEDS: insulin Lispro (HumaLOG) vial - multi-dose SQ SCH (19:57)
[2017-11-05] MEDS: insulin glargine (Lantus) pen - multi-dose SQ SCH (21:12)
[2017-11-06] VITALS (24 sets, daily range): BP systolic 92–165; BP diastolic 53–94
[2017-11-06] MEDS: ipratropium/albuterol 3ml nebule NEB SCH ×7 (00:18→22:56)
[2017-11-06] MEDS: methylPREDNISolone sod succ 125mg/2ml vial IV SCH ×4 (02:00→20:18)
[2017-11-06] MEDS: dexmedetomidin/NS 400mcg/100ml 100 ML IV SCH (02:01)
[2017-11-06 03:34] LABS: BASOPHILS % (AUTO) 0 % (0-1); EOSINOPHILS # (AUTO) 0.2 X10'3 (0-0.9); EOSINOPHILS % (AUTO) 2.1 % (0-6); HEMATOCRIT 26.6 % (35.0-45.0); HEMOGLOBIN 8.7 g/dl (12.0-16.0); LYMPHOCYTES # (AUTO) 0.2 X10'3 (1.1-4.8); LYMPHOCYTES % (AUTO) 2.3 % (21-51); MEAN CORPUSCULAR HEMOGLOBIN 27.7 PG (27.0-31.0); MEAN CORPUSCULAR HGB CONC 32.9 % (33.0-36.5); MEAN CORPUSCULAR VOLUME 84.3 FL (78-98); MEAN PLATELET VOLUME 8.2 FL (7.4-10.4); MONOCYTES # (AUTO) 0.2 X10'3 (0-0.9); MONOCYTES % (AUTO) 2.4 % (2-12); NEUTROPHILS # (AUTO) 6.8 X10'3 (1.8-7.7); NEUTROPHILS % (AUTO) 93.2 % (42-75); PLATELET COUNT 114 X10'3 (140-440); RED BLOOD COUNT 3.15 X10'6 (4.20-5.60); RED CELL DISTRIBUTION WIDTH 16.4 % (11.5-14.5); WHITE BLOOD COUNT 7.3 X10'3 (4.5-11.0)
[2017-11-06 03:43] LABS: INR 1.1 INR; PARTIAL THROMBOPLASTIN TIME 26 SECONDS (22-32)
[2017-11-06 03:48] LABS: ALANINE AMINOTRANSFERASE 35 U/L (12-78); ALBUMIN 2.2 G/DL (3.4-5.0); ALKALINE PHOSPHATASE 72 IU/L (46-116); ANION GAP 2 (8-16); ASPARTATE AMINO TRANSFERASE 11 U/L (10-37); BILIRUBIN,TOTAL 0.4 MG/DL (0.1-1.0); BLOOD UREA NITROGEN 22 MG/DL (7-18); BUN/CREATININE RATIO 52.4 (6.6-38.0); CALCIUM 8.7 MG/DL (8.5-10.1); CHLORIDE 112 MMOL/L (99-107); CREATININE 0.42 MG/DL (0.40-0.90); GLUCOSE 141 MG/DL (70-104); MAGNESIUM 1.6 MG/DL (1.5-2.4); PHOSPHORUS 2.6 MG/DL (2.3-4.5); POTASSIUM 3.2 MMOL/L (3.5-5.1); SODIUM 150 MMOL/L (135-145); TOTAL CARBON DIOXIDE 35.6 MMOL/L (24-32); TOTAL PROTEIN 4.3 G/DL (6.4-8.2); eGFR > 90 ML/MIN
[2017-11-06] MEDS: K, MAG and/or Phos replacement - Verify level? MC SCH (06:47)
[2017-11-06] MEDS: Protein Smoothie (high protein) 240ml (8oz) cup PO SCH ×3 (08:00→18:00)
[2017-11-06] MEDS: lactobacillus rhamnosus 10,000 MMU CELLS/CAPSULE PO SCH ×2 (09:35→20:17)
[2017-11-06] MEDS: fluconazole 100mg tablet PO SCH (09:35)
[2017-11-06] MEDS: pantoprazole 40mg Tablet.DR PO SCH (09:35)
[2017-11-06] MEDS: acetaZOLAMIDE IV 500mg inj IV SCH ×2 (09:36→20:15)
[2017-11-06] MEDS: heparin, porcine 5000 units/ml vial SQ SCH ×2 (09:37→20:17)
[2017-11-06] MEDS: insulin Lispro (HumaLOG) vial - multi-dose SQ SCH (09:59)
[2017-11-06] MEDS: levoFLOXACIN 500mg tablet PO SCH (11:00)
[2017-11-06] MEDS: potassium Cl 40MEQ/250ML bag 250 ML IV PRN (13:16)
[2017-11-06] MEDS: dextrose ORAL solution 15 GM/59 ML bottle PO PRN (20:07)
[2017-11-06] MEDS: insulin glargine (Lantus) pen - multi-dose SQ SCH (20:38)
[2017-11-07] VITALS (17 sets, daily range): BP systolic 90–146; BP diastolic 51–92
[2017-11-07] MEDS: methylPREDNISolone sod succ 125mg/2ml vial IV SCH ×2 (01:56→07:53)
[2017-11-07] MEDS: dexmedetomidin/NS 400mcg/100ml 100 ML IV SCH (02:06)
[2017-11-07 02:30] LABS: INR 1.1 INR; PARTIAL THROMBOPLASTIN TIME 35 SECONDS (22-32); PROTHROMBIN TIME 11.4 SECONDS (9.0-12.0)
[2017-11-07 02:36] LABS: ALANINE AMINOTRANSFERASE 36 U/L (12-78); ALBUMIN 2.1 G/DL (3.4-5.0); ALBUMIN/GLOBULIN RATIO 0.9 (1.1-1.5); ALKALINE PHOSPHATASE 72 IU/L (46-116); ANION GAP -1 (8-16); ASPARTATE AMINO TRANSFERASE 11 U/L (10-37); BILIRUBIN,TOTAL 0.5 MG/DL (0.1-1.0); BLOOD UREA NITROGEN 19 MG/DL (7-18); BUN/CREATININE RATIO 47.5 (6.6-38.0); CALCIUM 9.1 MG/DL (8.5-10.1); CHLORIDE 112 MMOL/L (99-107); GLUCOSE 101 MG/DL (70-104); MAGNESIUM 1.8 MG/DL (1.5-2.4); PHOSPHORUS 2.6 MG/DL (2.3-4.5); POTASSIUM 3.5 MMOL/L (3.5-5.1); PREALBUMIN 23.7 MG/DL (19-36); SODIUM 150 MMOL/L (135-145); TOTAL CARBON DIOXIDE 38.6 MMOL/L (24-32); TOTAL PROTEIN 4.4 G/DL (6.4-8.2); eGFR > 90 ML/MIN
[2017-11-07 02:54] LABS: BASOPHILS % (AUTO) 0 % (0-1); EOSINOPHILS # (AUTO) 0.1 X10'3 (0-0.9); HEMOGLOBIN 8.9 g/dl (12.0-16.0); LYMPHOCYTES # (AUTO) 0.1 X10'3 (1.1-4.8); LYMPHOCYTES % (AUTO) 2.5 % (21-51); MEAN CORPUSCULAR HEMOGLOBIN 27.8 PG (27.0-31.0); MEAN CORPUSCULAR HGB CONC 32.8 % (33.0-36.5); MEAN CORPUSCULAR VOLUME 84.7 FL (78-98); MEAN PLATELET VOLUME 8.1 FL (7.4-10.4); MONOCYTES # (AUTO) 0.1 X10'3 (0-0.9); MONOCYTES % (AUTO) 1.9 % (2-12); NEUTROPHILS # (AUTO) 5.4 X10'3 (1.8-7.7); NEUTROPHILS % (AUTO) 93.6 % (42-75); PLATELET COUNT 122 X10'3 (140-440); RED BLOOD COUNT 3.19 X10'6 (4.20-5.60); RED CELL DISTRIBUTION WIDTH 16.6 % (11.5-14.5); WHITE BLOOD COUNT 5.8 X10'3 (4.5-11.0)
[2017-11-07] MEDS: ipratropium/albuterol 3ml nebule NEB SCH ×6 (02:55→23:03)
[2017-11-07] MEDS: acetaZOLAMIDE IV 500mg inj IV SCH (07:54)
[2017-11-07] MEDS: pantoprazole 40mg Tablet.DR PO SCH (07:54)
[2017-11-07] MEDS: lactobacillus rhamnosus 10,000 MMU CELLS/CAPSULE PO SCH ×2 (07:54→20:35)
[2017-11-07] MEDS: heparin, porcine 5000 units/ml vial SQ SCH ×2 (07:54→20:36)
[2017-11-07] MEDS: fluconazole 100mg tablet PO SCH (07:55)
[2017-11-07] MEDS: K, MAG and/or Phos replacement - Verify level? MC SCH (08:38)
[2017-11-07] MEDS: Protein Smoothie (high protein) 240ml (8oz) cup PO SCH ×3 (08:38→18:00)
[2017-11-07] MEDS: levoFLOXACIN 500mg tablet PO SCH (11:29)
[2017-11-07] MEDS: methylPREDNISolone sod succ/PF 40mg inj. IV SCH (20:37)
[2017-11-07] MEDS: insulin glargine (Lantus) pen - multi-dose SQ SCH (20:49)
[2017-11-08 02:00] VITALS: BP 118/67
[2017-11-08] MEDS: methylPREDNISolone sod succ/PF 40mg inj. IV SCH ×4 (02:06→20:26)
[2017-11-08] MEDS: ipratropium/albuterol 3ml nebule NEB SCH ×5 (02:57→20:30)
[2017-11-08 06:00] VITALS: BP 111/64
[2017-11-08 06:06] LABS: BASOPHILS % (AUTO) 0 % (0-1); EOSINOPHILS # (AUTO) 0.1 X10'3 (0-0.9); EOSINOPHILS % (AUTO) 1.9 % (0-6); HEMATOCRIT 26.3 % (35.0-45.0); HEMOGLOBIN 8.8 g/dl (12.0-16.0); LYMPHOCYTES # (AUTO) 0.1 X10'3 (1.1-4.8); LYMPHOCYTES % (AUTO) 2.6 % (21-51); MEAN CORPUSCULAR HEMOGLOBIN 28.1 PG (27.0-31.0); MEAN CORPUSCULAR HGB CONC 33.5 % (33.0-36.5); MEAN CORPUSCULAR VOLUME 83.7 FL (78-98); MEAN PLATELET VOLUME 7.9 FL (7.4-10.4); MONOCYTES # (AUTO) 0.2 X10'3 (0-0.9); MONOCYTES % (AUTO) 2.9 % (2-12); NEUTROPHILS % (AUTO) 92.6 % (42-75); PLATELET COUNT 126 X10'3 (140-440); RED BLOOD COUNT 3.14 X10'6 (4.20-5.60); RED CELL DISTRIBUTION WIDTH 16.5 % (11.5-14.5); WHITE BLOOD COUNT 5.4 X10'3 (4.5-11.0)
[2017-11-08 06:15] LABS: ALANINE AMINOTRANSFERASE 40 U/L (12-78); ALBUMIN 2.3 G/DL (3.4-5.0); ALKALINE PHOSPHATASE 81 IU/L (46-116); ANION GAP 1 (8-16); ASPARTATE AMINO TRANSFERASE 17 U/L (10-37); BILIRUBIN,TOTAL 0.6 MG/DL (0.1-1.0); BLOOD UREA NITROGEN 21 MG/DL (7-18); BUN/CREATININE RATIO 36.2 (6.6-38.0); CALCIUM 8.9 MG/DL (8.5-10.1); CHLORIDE 109 MMOL/L (99-107); CREATININE 0.58 MG/DL (0.40-0.90); GLUCOSE 212 MG/DL (70-104); MAGNESIUM 1.9 MG/DL (1.5-2.4); PHOSPHORUS 3.1 MG/DL (2.3-4.5); POTASSIUM 3.4 MMOL/L (3.5-5.1); SODIUM 149 MMOL/L (135-145); TOTAL CARBON DIOXIDE 38.9 MMOL/L (24-32); TOTAL PROTEIN 4.5 G/DL (6.4-8.2); eGFR > 90 ML/MIN
[2017-11-08 06:27] LABS: INR 1.1 INR; PARTIAL THROMBOPLASTIN TIME 29 SECONDS (22-32)
[2017-11-08] MEDS: potassium Cl 40MEQ/250ML bag 250 ML IV PRN (08:23)
[2017-11-08] MEDS: pantoprazole 40mg Tablet.DR PO SCH (08:23)
[2017-11-08] MEDS: lactobacillus rhamnosus 10,000 MMU CELLS/CAPSULE PO SCH ×2 (08:24→20:23)
[2017-11-08] MEDS: heparin, porcine 5000 units/ml vial SQ SCH ×2 (08:25→20:25)
[2017-11-08] MEDS: K, MAG and/or Phos replacement - Verify level? MC SCH (08:31)
[2017-11-08] MEDS: Protein Smoothie (high protein) 240ml (8oz) cup PO SCH ×3 (08:31→19:47)
[2017-11-08] MEDS: fluconazole 100mg tablet PO SCH (08:32)
[2017-11-08 11:00] VITALS: BP 136/80
[2017-11-08] MEDS: levoFLOXACIN 500mg tablet PO SCH (12:48)
[2017-11-08 15:00] VITALS: BP 137/69
[2017-11-08 18:00] VITALS: BP 139/82
[2017-11-08] MEDS: insulin glargine (Lantus) pen - multi-dose SQ SCH (21:00)
[2017-11-08 22:30] VITALS: BP 125/77
[2017-11-09] MEDS: ipratropium/albuterol 3ml nebule NEB SCH ×7 (00:24→23:51)
[2017-11-09] MEDS: methylPREDNISolone sod succ/PF 40mg inj. IV SCH ×4 (01:35→20:37)
[2017-11-09 06:00] VITALS: BP 133/73
[2017-11-09 06:37] LABS: BASOPHILS % (AUTO) 0 % (0-1); EOSINOPHILS % (AUTO) 0.9 % (0-6); HEMATOCRIT 27.5 % (35.0-45.0); HEMOGLOBIN 9.1 g/dl (12.0-16.0); LYMPHOCYTES # (AUTO) 0.1 X10'3 (1.1-4.8); LYMPHOCYTES % (AUTO) 2.1 % (21-51); MEAN CORPUSCULAR HGB CONC 33.2 % (33.0-36.5); MEAN CORPUSCULAR VOLUME 84.3 FL (78-98); MONOCYTES # (AUTO) 0.1 X10'3 (0-0.9); MONOCYTES % (AUTO) 2.2 % (2-12); NEUTROPHILS # (AUTO) 4.7 X10'3 (1.8-7.7); NEUTROPHILS % (AUTO) 94.8 % (42-75); PLATELET COUNT 128 X10'3 (140-440); RED BLOOD COUNT 3.27 X10'6 (4.20-5.60); RED CELL DISTRIBUTION WIDTH 17.4 % (11.5-14.5)
[2017-11-09 06:50] LABS: INR 1.1 INR; PARTIAL THROMBOPLASTIN TIME 24 SECONDS (22-32)
[2017-11-09 07:13] LABS: ALANINE AMINOTRANSFERASE 43 U/L (12-78); ALBUMIN 2.5 G/DL (3.4-5.0); ALBUMIN/GLOBULIN RATIO 1.1 (1.1-1.5); ALKALINE PHOSPHATASE 83 IU/L (46-116); ANION GAP 1 (8-16); ASPARTATE AMINO TRANSFERASE 15 U/L (10-37); BILIRUBIN,TOTAL 0.6 MG/DL (0.1-1.0); BLOOD UREA NITROGEN 17 MG/DL (7-18); CALCIUM 8.9 MG/DL (8.5-10.1); CHLORIDE 109 MMOL/L (99-107); CREATININE 0.46 MG/DL (0.40-0.90); GLUCOSE 281 MG/DL (70-104); PHOSPHORUS 2.8 MG/DL (2.3-4.5); POTASSIUM 3.7 MMOL/L (3.5-5.1); SODIUM 150 MMOL/L (135-145); TOTAL PROTEIN 4.7 G/DL (6.4-8.2); eGFR > 90 ML/MIN
[2017-11-09] MEDS: K, MAG and/or Phos replacement - Verify level? MC SCH (08:00)
[2017-11-09] MEDS: pantoprazole 40mg Tablet.DR PO SCH (08:01)
[2017-11-09] MEDS: fluconazole 100mg tablet PO SCH (08:01)
[2017-11-09] MEDS: heparin, porcine 5000 units/ml vial SQ SCH ×2 (08:01→20:37)
[2017-11-09] MEDS: lactobacillus rhamnosus 10,000 MMU CELLS/CAPSULE PO SCH ×2 (08:01→20:36)
[2017-11-09] MEDS: Protein Smoothie (high protein) 240ml (8oz) cup PO SCH ×3 (08:16→18:04)
[2017-11-09 11:00] VITALS: BP 135/69
[2017-11-09] MEDS: levoFLOXACIN 500mg tablet PO SCH (11:02)
[2017-11-09 12:12] VITALS: BP 99/45
[2017-11-09 15:00] VITALS: BP 124/44
[2017-11-09 18:51] VITALS: BP 143/82
[2017-11-09] MEDS: insulin glargine (Lantus) pen - multi-dose SQ SCH (21:00)
[2017-11-09 22:30] VITALS: BP 134/77
[2017-11-10] VITALS (13 sets, daily range): BP systolic 103–164; BP diastolic 71–123
[2017-11-10] MEDS: methylPREDNISolone sod succ/PF 40mg inj. IV SCH ×4 (02:16→19:56)
[2017-11-10] MEDS: ipratropium/albuterol 3ml nebule NEB SCH ×5 (03:58→23:56)
[2017-11-10 05:20] LABS: BASOPHILS % (AUTO) 0 % (0-1); EOSINOPHILS # (AUTO) 0.1 X10'3 (0-0.9); EOSINOPHILS % (AUTO) 1.7 % (0-6); HEMATOCRIT 27.7 % (35.0-45.0); HEMOGLOBIN 9.1 g/dl (12.0-16.0); LYMPHOCYTES # (AUTO) 0.1 X10'3 (1.1-4.8); LYMPHOCYTES % (AUTO) 2.1 % (21-51); MEAN CORPUSCULAR HEMOGLOBIN 28.2 PG (27.0-31.0); MEAN CORPUSCULAR VOLUME 85.4 FL (78-98); MEAN PLATELET VOLUME 7.8 FL (7.4-10.4); MONOCYTES # (AUTO) 0.2 X10'3 (0-0.9); MONOCYTES % (AUTO) 2.8 % (2-12); NEUTROPHILS # (AUTO) 6.1 X10'3 (1.8-7.7); NEUTROPHILS % (AUTO) 93.4 % (42-75); PLATELET COUNT 139 X10'3 (140-440); RED BLOOD COUNT 3.24 X10'6 (4.20-5.60); RED CELL DISTRIBUTION WIDTH 17.3 % (11.5-14.5); WHITE BLOOD COUNT 6.5 X10'3 (4.5-11.0)
[2017-11-10 05:45] LABS: INR 1.1 INR; PARTIAL THROMBOPLASTIN TIME 26 SECONDS (22-32)
[2017-11-10 06:21] LABS: ALANINE AMINOTRANSFERASE 43 U/L (12-78); ALBUMIN 2.7 G/DL (3.4-5.0); ALBUMIN/GLOBULIN RATIO 1.1 (1.1-1.5); ALKALINE PHOSPHATASE 97 IU/L (46-116); ANION GAP 1 (8-16); ASPARTATE AMINO TRANSFERASE 17 U/L (10-37); BILIRUBIN,TOTAL 0.6 MG/DL (0.1-1.0); BLOOD UREA NITROGEN 15 MG/DL (7-18); BUN/CREATININE RATIO 31.3 (6.6-38.0); CALCIUM 8.9 MG/DL (8.5-10.1); CHLORIDE 106 MMOL/L (99-107); CREATININE 0.48 MG/DL (0.40-0.90); GLUCOSE 253 MG/DL (70-104); MAGNESIUM 1.9 MG/DL (1.5-2.4); POTASSIUM 3.8 MMOL/L (3.5-5.1); SODIUM 150 MMOL/L (135-145); TOTAL PROTEIN 5.1 G/DL (6.4-8.2); eGFR > 90 ML/MIN
[2017-11-10] MEDS: pantoprazole 40mg Tablet.DR PO SCH (07:35)
[2017-11-10] MEDS: lactobacillus rhamnosus 10,000 MMU CELLS/CAPSULE PO SCH ×2 (07:35→19:55)
[2017-11-10] MEDS: heparin, porcine 5000 units/ml vial SQ SCH ×2 (07:36→19:55)
[2017-11-10 07:37] LABS: TOTAL CARBON DIOXIDE 42.9 MMOL/L (24-32)
[2017-11-10] MEDS: LACTOSE-FREE FOOD 237ML (BOOST) PO SCH ×3 (08:00→17:56)
[2017-11-10] MEDS: Protein Smoothie (high protein) 240ml (8oz) cup PO SCH ×3 (08:00→17:56)
[2017-11-10] MEDS: K, MAG and/or Phos replacement - Verify level? MC SCH (08:00)
[2017-11-10] MEDS: levoFLOXACIN 500mg tablet PO SCH (10:50)
[2017-11-10 17:41] LABS: ABG BASE EXCESS 11.5 mmol/L (-2.0-3.0); ABG HCO3 39.3 mmol/L (22.0-26.0); ABG OXYGEN SATURATION 89.4 % (95-98); ABG PCO2 (T) 71.8 mmHg (32.0-45.0); ABG PH (T) 7.356 (7.350-7.450); ABG PO2 (T) 63.1 mmHg (83-108); ALLEN'S TEST Positive; FCOHb 0.3 % (0.5-1.5); FMetHb 0.3 % (0.3-1.12); FO2Hb 88.9 % (94-100); RESPIRATORY RATE 20 b/min; RESPIRATORY RATE (OBSERVED) 21 b/min; TOTAL HEMOGLOBIN 10.6 G/dl (12.0-16.0)
[2017-11-10] MEDS: insulin glargine (Lantus) pen - multi-dose SQ SCH (21:00)
[2017-11-11] VITALS (8 sets, daily range): BP systolic 64–156; BP diastolic 43–99
[2017-11-11] MEDS: methylPREDNISolone sod succ/PF 40mg inj. IV SCH ×4 (01:44→19:39)
[2017-11-11] MEDS: ipratropium/albuterol 3ml nebule NEB SCH ×6 (02:49→23:41)
[2017-11-11 05:30] LABS: BASOPHILS % (AUTO) 0 % (0-1); EOSINOPHILS # (AUTO) 0.1 X10'3 (0-0.9); EOSINOPHILS % (AUTO) 1.8 % (0-6); HEMATOCRIT 27.6 % (35.0-45.0); HEMOGLOBIN 9.3 g/dl (12.0-16.0); LYMPHOCYTES # (AUTO) 0.2 X10'3 (1.1-4.8); MEAN CORPUSCULAR HEMOGLOBIN 28.3 PG (27.0-31.0); MEAN CORPUSCULAR HGB CONC 33.5 % (33.0-36.5); MEAN CORPUSCULAR VOLUME 84.6 FL (78-98); MEAN PLATELET VOLUME 7.9 FL (7.4-10.4); MONOCYTES # (AUTO) 0.3 X10'3 (0-0.9); MONOCYTES % (AUTO) 4.5 % (2-12); NEUTROPHILS # (AUTO) 6.5 X10'3 (1.8-7.7); NEUTROPHILS % (AUTO) 90.7 % (42-75); PLATELET COUNT 132 X10'3 (140-440); RED BLOOD COUNT 3.27 X10'6 (4.20-5.60); RED CELL DISTRIBUTION WIDTH 17.2 % (11.5-14.5); WHITE BLOOD COUNT 7.1 X10'3 (4.5-11.0)
[2017-11-11 05:42] LABS: INR 1.1 INR; PARTIAL THROMBOPLASTIN TIME 28 SECONDS (22-32)
[2017-11-11 06:13] LABS: ANISOCYTOSIS 1+; PLATELET ESTIMATE DECREASED; POLYCHROMASIA FEW; STOMATOCYTES FEW; TARGET CELLS FEW
[2017-11-11 06:19] LABS: ALANINE AMINOTRANSFERASE 50 U/L (12-78); ALBUMIN/GLOBULIN RATIO 1.4 (1.1-1.5); ALKALINE PHOSPHATASE 108 IU/L (46-116); ANION GAP 0 (8-16); ASPARTATE AMINO TRANSFERASE 19 U/L (10-37); BILIRUBIN,TOTAL 0.7 MG/DL (0.1-1.0); BLOOD UREA NITROGEN 23 MG/DL (7-18); CALCIUM 9.3 MG/DL (8.5-10.1); CHLORIDE 105 MMOL/L (99-107); GLUCOSE 259 MG/DL (70-104); MAGNESIUM 1.9 MG/DL (1.5-2.4); POTASSIUM 4.1 MMOL/L (3.5-5.1); PREALBUMIN 25.9 MG/DL (19-36); SODIUM 149 MMOL/L (135-145); TOTAL PROTEIN 5.2 G/DL (6.4-8.2); eGFR > 90 ML/MIN
[2017-11-11 07:35] LABS: TOTAL CARBON DIOXIDE 43.6 MMOL/L (24-32)
[2017-11-11] MEDS: pantoprazole 40mg Tablet.DR PO SCH (07:59)
[2017-11-11] MEDS: lactobacillus rhamnosus 10,000 MMU CELLS/CAPSULE PO SCH ×2 (07:59→19:47)
[2017-11-11] MEDS: K, MAG and/or Phos replacement - Verify level? MC SCH (08:00)
[2017-11-11] MEDS: heparin, porcine 5000 units/ml vial SQ SCH ×2 (08:00→19:44)
[2017-11-11] MEDS: Protein Smoothie (high protein) 240ml (8oz) cup PO SCH ×3 (08:06→18:00)
[2017-11-11] MEDS: LACTOSE-FREE FOOD 237ML (BOOST) PO SCH ×3 (08:07→18:00)
[2017-11-11] MEDS: levoFLOXACIN 500mg tablet PO SCH (10:59)
[2017-11-11 14:30] LABS: ABG BASE EXCESS 13.7 mmol/L (-2.0-3.0); ABG HCO3 43.2 mmol/L (22.0-26.0); ABG OXYGEN SATURATION 95.5 % (95-98); ABG PCO2 (T) 93.7 mmHg (32.0-45.0); ABG PH (T) 7.282 (7.350-7.450); ABG PO2 (T) 94.8 mmHg (83-108); FMetHb 0.1 % (0.3-1.12); FO2Hb 95.4 % (94-100); TOTAL HEMOGLOBIN 9.7 G/dl (12.0-16.0)
[2017-11-11] MEDS ORDERED: furosemide 40mg/4ml inj IV ONE (14:55)
[2017-11-11 18:51] LABS: ABG HCO3 50.7 mmol/L (22.0-26.0); ABG OXYGEN SATURATION 87.7 % (95-98); ABG PCO2 (T) 87.7 mmHg (32.0-45.0); ABG PH (T) 7.381 (7.350-7.450); ABG PO2 (T) 57.5 mmHg (83-108); ALLEN'S TEST Positive; FCOHb 0.1 % (0.5-1.5); FMetHb 0.1 % (0.3-1.12); FO2Hb 87.5 % (94-100); MINUTE VOLUME 12 L/min; PATIENT TEMPERATURE 37.2; RESPIRATORY RATE 26 b/min; RESPIRATORY RATE (OBSERVED) 26 b/min; TIDAL VOLUME 314 mL
[2017-11-11] MEDS: morphine 2 MG/ML inj. syringe IV PRN ×2 (19:04→22:22)
[2017-11-11] MEDS: furosemide 40mg/4ml inj IV SCH (19:40)
[2017-11-11] MEDS ORDERED: furosemide 40mg/4ml inj IV SCH (20:00)
[2017-11-11] MEDS ORDERED: NORepinephrine 8mg/ 250ml NS 250 ML IV SCH (20:20)
[2017-11-11] MEDS ORDERED: NORepinephrine 8mg/ 250ml NS 250 ML IV ONE (20:20)
[2017-11-11] MEDS: insulin glargine (Lantus) pen - multi-dose SQ SCH (21:00)
[2017-11-11] MEDS: levoFLOXACIN-Levaquin 500mg/D5 100 ML IV SCH ×2 (21:15→22:00)
[2017-11-11 21:31] LABS: ABG BASE EXCESS 18.1 mmol/L (-2.0-3.0); ABG HCO3 46.8 mmol/L (22.0-26.0); ABG OXYGEN SATURATION 94.4 % (95-98); ABG PCO2 (T) 85.6 mmHg (32.0-45.0); ABG PH (T) 7.357 (7.350-7.450); ABG PO2 (T) 82.1 mmHg (83-108); ALLEN'S TEST Positive; FCOHb 0.3 % (0.5-1.5); FMetHb 0.1 % (0.3-1.12); PATIENT TEMPERATURE 37.1; RESPIRATORY RATE 26 b/min; RESPIRATORY RATE (OBSERVED) 30 b/min; TOTAL HEMOGLOBIN 10.2 G/dl (12.0-16.0)
[2017-11-12] VITALS (22 sets, daily range): BP systolic 81–145; BP diastolic 58–85
[2017-11-12] MEDS: methylPREDNISolone sod succ/PF 40mg inj. IV SCH ×4 (00:55→20:18)
[2017-11-12] MEDS: morphine 2 MG/ML inj. syringe IV PRN ×4 (02:52→12:57)
[2017-11-12 04:31] LABS: ABG BASE EXCESS 20.5 mmol/L (-2.0-3.0); ABG HCO3 48.3 mmol/L (22.0-26.0); ABG OXYGEN SATURATION 97.3 % (95-98); ABG PCO2 (T) 79.6 mmHg (32.0-45.0); ABG PO2 (T) 109.6 mmHg (83-108); ALLEN'S TEST Positive; FCOHb 0.2 % (0.5-1.5); FMetHb 0.1 % (0.3-1.12); MINUTE VOLUME 17 L/min; PATIENT TEMPERATURE 36.9; RESPIRATORY RATE 26 b/min; RESPIRATORY RATE (OBSERVED) 26 b/min; TOTAL HEMOGLOBIN 9.1 G/dl (12.0-16.0)
[2017-11-12 05:51] LABS: INR 1.1 INR; PARTIAL THROMBOPLASTIN TIME 26 SECONDS (22-32); PROTHROMBIN TIME 11.5 SECONDS (9.0-12.0)
[2017-11-12 06:00] LABS: BASOPHILS % (AUTO) 0.1 % (0-1); EOSINOPHILS % (AUTO) 0.7 % (0-6); HEMATOCRIT 24.3 % (35.0-45.0); HEMOGLOBIN 8.2 g/dl (12.0-16.0); LYMPHOCYTES # (AUTO) 0.3 X10'3 (1.1-4.8); LYMPHOCYTES % (AUTO) 4.4 % (21-51); MEAN CORPUSCULAR HEMOGLOBIN 28.2 PG (27.0-31.0); MEAN CORPUSCULAR HGB CONC 33.9 % (33.0-36.5); MEAN CORPUSCULAR VOLUME 83.3 FL (78-98); MONOCYTES # (AUTO) 0.3 X10'3 (0-0.9); MONOCYTES % (AUTO) 4.3 % (2-12); NEUTROPHILS # (AUTO) 6.1 X10'3 (1.8-7.7); NEUTROPHILS % (AUTO) 90.5 % (42-75); PLATELET COUNT 109 X10'3 (140-440); RED BLOOD COUNT 2.92 X10'6 (4.20-5.60); RED CELL DISTRIBUTION WIDTH 17.3 % (11.5-14.5); WHITE BLOOD COUNT 6.7 X10'3 (4.5-11.0)
[2017-11-12 06:08] LABS: ALANINE AMINOTRANSFERASE 55 U/L (12-78); ALBUMIN 2.9 G/DL (3.4-5.0); ALBUMIN/GLOBULIN RATIO 1.3 (1.1-1.5); ALKALINE PHOSPHATASE 77 IU/L (46-116); ASPARTATE AMINO TRANSFERASE 21 U/L (10-37); BLOOD UREA NITROGEN 32 MG/DL (7-18); CALCIUM 9.3 MG/DL (8.5-10.1); CHLORIDE 103 MMOL/L (99-107); CREATININE 0.78 MG/DL (0.40-0.90); GLUCOSE 238 MG/DL (70-104); MAGNESIUM 2.1 MG/DL (1.5-2.4); POTASSIUM 5.1 MMOL/L (3.5-5.1); SODIUM 150 MMOL/L (135-145); TOTAL PROTEIN 5.1 G/DL (6.4-8.2); eGFR 75 ML/MIN
[2017-11-12 06:48] LABS: ANION GAP -1 (8-16)
[2017-11-12] MEDS: pantoprazole 40mg Tablet.DR PO SCH (07:30)
[2017-11-12] MEDS: K, MAG and/or Phos replacement - Verify level? MC SCH (08:00)
[2017-11-12] MEDS: Protein Smoothie (high protein) 240ml (8oz) cup PO SCH ×3 (08:00→21:03)
[2017-11-12] MEDS: LACTOSE-FREE FOOD 237ML (BOOST) PO SCH ×3 (08:00→21:03)
[2017-11-12] MEDS: lactobacillus rhamnosus 10,000 MMU CELLS/CAPSULE PO SCH ×2 (08:00→20:18)
[2017-11-12] MEDS: ipratropium/albuterol 3ml nebule NEB SCH ×4 (08:15→22:30)
[2017-11-12 08:29] LABS: ANISOCYTOSIS 1+; HYPOCHROMASIA 1+; PLATELET ESTIMATE DECREASED
[2017-11-12 08:30] LABS: TARGET CELLS FEW
[2017-11-12] MEDS: furosemide 40mg/4ml inj IV SCH ×2 (09:11→20:18)
[2017-11-12] MEDS: levoFLOXACIN-Levaquin 500mg/D5 100 ML IV SCH (09:12)
[2017-11-12] MEDS: heparin, porcine 5000 units/ml vial SQ SCH ×2 (09:12→20:18)
[2017-11-12] MEDS ORDERED: ipratropium/albuterol 3ml nebule NEB PRN (15:10)
[2017-11-12] MEDS: CefTRIAXone/D5W-Rocephin 1gm 50 ML IV SCH (15:50)
[2017-11-12] MEDS: azithromycin/NS 500mg/250ml 250 ML IV SCH (17:02)
[2017-11-12] MEDS: insulin Lispro (HumaLOG) vial - multi-dose SQ SCH ×2 (17:48→21:26)
[2017-11-12] MEDS ORDERED: lactobacillus rhamnosus 10,000 MMU CELLS/CAPSULE PO SCH (20:00)
[2017-11-12] MEDS: insulin glargine (Lantus) pen - multi-dose SQ SCH (21:25)
[2017-11-12] MEDS ORDERED: morphine 8mg/ml inj. syringe ONE (22:59)
[2017-11-12 23:30] LABS: URINE AMPHETAMINE SCREEN NEGATIVE (Neg); URINE BARBITUATE SCREEN NEGATIVE (Neg); URINE BENZODIAZEPINES SCREEN NEGATIVE (Neg); URINE CANNABINOID SCREEN NEGATIVE (Neg); URINE COCAINE SCREEN NEGATIVE (Neg); URINE METHADONE SCREEN NEGATIVE (Neg); URINE OPIATE SCREEN POSITIVE (Neg); URINE PHENCYCLIDINE SCREEN NEGATIVE (Neg)
[2017-11-13] VITALS (23 sets, daily range): BP systolic 101–163; BP diastolic 55–89
[2017-11-13] MEDS: methylPREDNISolone sod succ/PF 40mg inj. IV SCH ×4 (01:43→20:25)
[2017-11-13] MEDS ORDERED: morphine 8mg/ml inj. syringe ONE (02:27)
[2017-11-13] MEDS: ipratropium/albuterol 3ml nebule NEB SCH ×5 (02:33→19:39)
[2017-11-13 03:46] LABS: BASOPHILS % (AUTO) 0.1 % (0-1); EOSINOPHILS # (AUTO) 0.1 X10'3 (0-0.9); EOSINOPHILS % (AUTO) 1.6 % (0-6); HEMOGLOBIN 7.9 g/dl (12.0-16.0); LYMPHOCYTES # (AUTO) 0.3 X10'3 (1.1-4.8); LYMPHOCYTES % (AUTO) 3.8 % (21-51); MEAN CORPUSCULAR HEMOGLOBIN 28.3 PG (27.0-31.0); MEAN CORPUSCULAR VOLUME 85.6 FL (78-98); MEAN PLATELET VOLUME 8.2 FL (7.4-10.4); MONOCYTES # (AUTO) 0.2 X10'3 (0-0.9); MONOCYTES % (AUTO) 2.6 % (2-12); NEUTROPHILS # (AUTO) 7.8 X10'3 (1.8-7.7); NEUTROPHILS % (AUTO) 91.9 % (42-75); PLATELET COUNT 106 X10'3 (140-440); RED BLOOD COUNT 2.81 X10'6 (4.20-5.60); RED CELL DISTRIBUTION WIDTH 17.7 % (11.5-14.5); WHITE BLOOD COUNT 8.5 X10'3 (4.5-11.0)
[2017-11-13 04:03] LABS: ALANINE AMINOTRANSFERASE 278 U/L (12-78); ALBUMIN 2.9 G/DL (3.4-5.0); ALBUMIN/GLOBULIN RATIO 1.2 (1.1-1.5); ALKALINE PHOSPHATASE 76 IU/L (46-116); ASPARTATE AMINO TRANSFERASE 92 U/L (10-37); BILIRUBIN,TOTAL 0.8 MG/DL (0.1-1.0); BLOOD UREA NITROGEN 33 MG/DL (7-18); CALCIUM 9.3 MG/DL (8.5-10.1); CHLORIDE 101 MMOL/L (99-107); GLUCOSE 185 MG/DL (70-104); POTASSIUM 3.3 MMOL/L (3.5-5.1); SODIUM 153 MMOL/L (135-145); TOTAL PROTEIN 5.3 G/DL (6.4-8.2); eGFR > 90 ML/MIN
[2017-11-13 04:22] LABS: ANION GAP 2 (8-16)
[2017-11-13 04:25] LABS: TOTAL CARBON DIOXIDE > 50 MMOL/L (24-32)
[2017-11-13] MEDS ORDERED: potassium Cl 40MEQ/250ML bag 250 ML IV ONE (05:04)
[2017-11-13] MEDS: azithromycin/NS 500mg/250ml 250 ML IV SCH (07:39)
[2017-11-13] MEDS: furosemide 40mg/4ml inj IV SCH ×2 (07:39→20:27)
[2017-11-13] MEDS: pantoprazole 40mg Tablet.DR PO SCH (07:40)
[2017-11-13] MEDS: heparin, porcine 5000 units/ml vial SQ SCH ×2 (07:40→20:30)
[2017-11-13] MEDS: lactobacillus rhamnosus 10,000 MMU CELLS/CAPSULE PO SCH ×2 (07:40→20:28)
[2017-11-13] MEDS: CefTRIAXone/D5W-Rocephin 1gm 50 ML IV SCH (07:41)
[2017-11-13] MEDS: K, MAG and/or Phos replacement - Verify level? MC SCH (08:00)
[2017-11-13] MEDS: Protein Smoothie (high protein) 240ml (8oz) cup PO SCH ×3 (08:00→19:22)
[2017-11-13] MEDS: MORPHINE 2MG in 2ml NS syringe IV PRN ×3 (08:21→23:43)
[2017-11-13] MEDS: LACTOSE-FREE FOOD 237ML (BOOST) PO SCH ×3 (09:14→18:00)
[2017-11-13] MEDS: insulin Lispro (HumaLOG) vial - multi-dose SQ SCH ×4 (09:14→21:44)
[2017-11-13 10:35] LABS: ABG BASE EXCESS 29.7 mmol/L (-2.0-3.0); ABG HCO3 57.2 mmol/L (22.0-26.0); ABG OXYGEN SATURATION 95.4 % (95-98); ABG PCO2 (T) 80.2 mmHg (32.0-45.0); ABG PH (T) 7.471 (7.350-7.450); ABG PO2 (T) 84.8 mmHg (83-108); ALLEN'S TEST Positive; FCOHb 0.3 % (0.5-1.5); FMetHb 0.3 % (0.3-1.12); FO2Hb 94.8 % (94-100); RESPIRATORY RATE 26 b/min; TOTAL HEMOGLOBIN 8.7 G/dl (12.0-16.0)
[2017-11-13 21:46] LABS: ABG BASE EXCESS 25.6 mmol/L (-2.0-3.0); ABG HCO3 53.1 mmol/L (22.0-26.0); ABG OXYGEN SATURATION 90.4 % (95-98); ABG PCO2 (T) 77.7 mmHg (32.0-45.0); ABG PH (T) 7.454 (7.350-7.450); ABG PO2 (T) 65.6 mmHg (83-108); ALLEN'S TEST Positive; FCOHb 0.1 % (0.5-1.5); FLOW 2 L/min; FMetHb 0.3 % (0.3-1.12); PATIENT TEMPERATURE 37.4; RESPIRATORY RATE (OBSERVED) 26 b/min; TOTAL HEMOGLOBIN 9.6 G/dl (12.0-16.0)
[2017-11-13] MEDS: insulin glargine (Lantus) pen - multi-dose SQ SCH (21:46)
[2017-11-14] VITALS (24 sets, daily range): BP systolic 81–128; BP diastolic 51–72
[2017-11-14] MEDS: ipratropium/albuterol 3ml nebule NEB SCH ×7 (00:13→23:28)
[2017-11-14] MEDS: methylPREDNISolone sod succ/PF 40mg inj. IV SCH ×4 (01:55→19:59)
[2017-11-14 03:03] LABS: BASOPHILS % (AUTO) 0 % (0-1); EOSINOPHILS % (AUTO) 0.8 % (0-6); HEMATOCRIT 22.3 % (35.0-45.0); HEMOGLOBIN 7.3 g/dl (12.0-16.0); LYMPHOCYTES # (AUTO) 0.3 X10'3 (1.1-4.8); LYMPHOCYTES % (AUTO) 5.2 % (21-51); MEAN CORPUSCULAR HEMOGLOBIN 28.1 PG (27.0-31.0); MEAN CORPUSCULAR HGB CONC 32.8 % (33.0-36.5); MEAN CORPUSCULAR VOLUME 85.7 FL (78-98); MEAN PLATELET VOLUME 8.2 FL (7.4-10.4); MONOCYTES # (AUTO) 0.2 X10'3 (0-0.9); MONOCYTES % (AUTO) 3.5 % (2-12); NEUTROPHILS # (AUTO) 4.9 X10'3 (1.8-7.7); NEUTROPHILS % (AUTO) 90.5 % (42-75); PLATELET COUNT 91 X10'3 (140-440); RED CELL DISTRIBUTION WIDTH 18.1 % (11.5-14.5); WHITE BLOOD COUNT 5.4 X10'3 (4.5-11.0)
[2017-11-14 03:20] LABS: ALANINE AMINOTRANSFERASE 187 U/L (12-78); ALBUMIN 2.7 G/DL (3.4-5.0); ALBUMIN/GLOBULIN RATIO 1.1 (1.1-1.5); ALKALINE PHOSPHATASE 77 IU/L (46-116); ASPARTATE AMINO TRANSFERASE 25 U/L (10-37); BILIRUBIN,TOTAL 0.6 MG/DL (0.1-1.0); BLOOD UREA NITROGEN 33 MG/DL (7-18); BUN/CREATININE RATIO 51.6 (6.6-38.0); CHLORIDE 101 MMOL/L (99-107); CREATININE 0.64 MG/DL (0.40-0.90); GLUCOSE 221 MG/DL (70-104); PREALBUMIN 18.8 MG/DL (19-36); SODIUM 152 MMOL/L (135-145); TOTAL PROTEIN 5.1 G/DL (6.4-8.2); eGFR > 90 ML/MIN
[2017-11-14 03:50] LABS: ANION GAP 1 (8-16); TOTAL CARBON DIOXIDE > 50 MMOL/L (24-32)
[2017-11-14] MEDS ORDERED: potassium Cl 40MEQ/250ML bag 250 ML IV ONE (03:52)
[2017-11-14] MEDS: potassium Cl 40MEQ/250ML bag 250 ML IV PRN (08:20)
[2017-11-14] MEDS: CefTRIAXone/D5W-Rocephin 1gm 50 ML IV SCH (08:47)
[2017-11-14] MEDS: lactobacillus rhamnosus 10,000 MMU CELLS/CAPSULE PO SCH ×2 (08:47→20:02)
[2017-11-14] MEDS: K, MAG and/or Phos replacement - Verify level? MC SCH (08:47)
[2017-11-14] MEDS: azithromycin/NS 500mg/250ml 250 ML IV SCH (08:47)
[2017-11-14] MEDS: heparin, porcine 5000 units/ml vial SQ SCH ×2 (08:47→20:01)
[2017-11-14] MEDS: LACTOSE-FREE FOOD 237ML (BOOST) PO SCH ×3 (08:47→19:39)
[2017-11-14] MEDS: Protein Smoothie (high protein) 240ml (8oz) cup PO SCH ×3 (08:54→19:39)
[2017-11-14] MEDS: pantoprazole 40mg Tablet.DR PO SCH (08:55)
[2017-11-14] MEDS: insulin Lispro (HumaLOG) vial - multi-dose SQ SCH ×4 (09:29→21:28)
[2017-11-14] MEDS: furosemide 40mg/4ml inj IV SCH ×2 (09:36→20:02)
[2017-11-14 18:29] LABS: OCCULT BLOOD STOOL NEGATIVE (Neg)
[2017-11-14] MEDS ORDERED: morphine 4 MG/ML inj SYRINge IV PRN (21:21)
[2017-11-14] MEDS: insulin glargine (Lantus) pen - multi-dose SQ SCH (21:28)
[2017-11-15] VITALS (8 sets, daily range): BP systolic 90–126; BP diastolic 53–69
[2017-11-15] MEDS: methylPREDNISolone sod succ/PF 40mg inj. IV SCH ×4 (02:32→21:03)
[2017-11-15] MEDS: ipratropium/albuterol 3ml nebule NEB SCH ×6 (03:19→23:32)
[2017-11-15 07:56] LABS: BASOPHILS % (AUTO) 0.1 % (0-1); EOSINOPHILS % (AUTO) 0 % (0-6); LYMPHOCYTES # (AUTO) 0.3 X10'3 (1.1-4.8); LYMPHOCYTES % (AUTO) 5.7 % (21-51); MEAN CORPUSCULAR HEMOGLOBIN 28.6 PG (27.0-31.0); MEAN CORPUSCULAR HGB CONC 32.7 % (33.0-36.5); MEAN CORPUSCULAR VOLUME 87.4 FL (78-98); MEAN PLATELET VOLUME 8.3 FL (7.4-10.4); MONOCYTES # (AUTO) 0.2 X10'3 (0-0.9); MONOCYTES % (AUTO) 3.8 % (2-12); NEUTROPHILS # (AUTO) 4.6 X10'3 (1.8-7.7); NEUTROPHILS % (AUTO) 90.4 % (42-75); PLATELET COUNT 80 X10'3 (140-440); RED BLOOD COUNT 2.41 X10'6 (4.20-5.60); RED CELL DISTRIBUTION WIDTH 18.5 % (11.5-14.5); WHITE BLOOD COUNT 5.1 X10'3 (4.5-11.0)
[2017-11-15 07:59] LABS: HEMOGLOBIN 6.9 g/dl (12.0-16.0)
[2017-11-15] MEDS: furosemide 40mg/4ml inj IV SCH (08:00)
[2017-11-15] MEDS: heparin, porcine 5000 units/ml vial SQ SCH ×2 (08:00→21:02)
[2017-11-15] MEDS: K, MAG and/or Phos replacement - Verify level? MC SCH (08:00)
[2017-11-15] MEDS: Protein Smoothie (high protein) 240ml (8oz) cup PO SCH ×3 (08:00→18:51)
[2017-11-15 08:10] LABS: ALANINE AMINOTRANSFERASE 127 U/L (12-78); ALBUMIN 2.6 G/DL (3.4-5.0); ALBUMIN/GLOBULIN RATIO 1.2 (1.1-1.5); ALKALINE PHOSPHATASE 70 IU/L (46-116); ASPARTATE AMINO TRANSFERASE 17 U/L (10-37); BILIRUBIN,TOTAL 0.7 MG/DL (0.1-1.0); BLOOD UREA NITROGEN 29 MG/DL (7-18); BUN/CREATININE RATIO 61.7 (6.6-38.0); CALCIUM 9.2 MG/DL (8.5-10.1); CHLORIDE 101 MMOL/L (99-107); CREATININE 0.47 MG/DL (0.40-0.90); GLUCOSE 110 MG/DL (70-104); MAGNESIUM 1.7 MG/DL (1.5-2.4); POTASSIUM 3.4 MMOL/L (3.5-5.1); TOTAL PROTEIN 4.7 G/DL (6.4-8.2); eGFR > 90 ML/MIN
[2017-11-15 08:16] LABS: ANION GAP 4 (8-16)
[2017-11-15 08:18] LABS: SODIUM 155 MMOL/L (135-145); TOTAL CARBON DIOXIDE > 50 MMOL/L (24-32)
[2017-11-15] MEDS: lactobacillus rhamnosus 10,000 MMU CELLS/CAPSULE PO SCH ×2 (08:42→21:03)
[2017-11-15] MEDS: pantoprazole 40mg Tablet.DR PO SCH (08:42)
[2017-11-15] MEDS: LACTOSE-FREE FOOD 237ML (BOOST) PO SCH ×3 (08:50→18:51)
[2017-11-15] MEDS: insulin Lispro (HumaLOG) vial - multi-dose SQ SCH ×3 (09:22→18:51)
[2017-11-15] MEDS: azithromycin/NS 500mg/250ml 250 ML IV SCH (10:42)
[2017-11-15] MEDS: CefTRIAXone/D5W-Rocephin 1gm 50 ML IV SCH (10:42)
[2017-11-15 12:56] LABS: % IRON SATURATION 57 % (11-46); IRON 98 UG/DL (49-151); TOTAL IRON BINDING CAPACITY 172 UG/DL (259-388)
[2017-11-15] MEDS: potassium Cl 40MEQ/250ML bag 250 ML IV PRN (13:22)
[2017-11-15] MEDS ORDERED: POTASSIUM 40MEQ/500ML NS ***PERIPHERAL LINE REPLACE IV PRN (14:15)
[2017-11-15] MEDS: acetaZOLAMIDE 250mg tablet PO SCH ×2 (14:56→21:03)
[2017-11-15] MEDS: dextrose 5%-water 1,000 ML IV SCH (17:30)
[2017-11-15] MEDS: insulin glargine (Lantus) pen - multi-dose SQ SCH (22:30)
[2017-11-16 02:00] VITALS: BP 123/62
[2017-11-16] MEDS: methylPREDNISolone sod succ/PF 40mg inj. IV SCH ×4 (02:29→20:07)
[2017-11-16] MEDS: ipratropium/albuterol 3ml nebule NEB SCH ×6 (03:19→23:06)
[2017-11-16 06:00] VITALS: BP 108/60
[2017-11-16] MEDS: K, MAG and/or Phos replacement - Verify level? MC SCH (08:00)
[2017-11-16] MEDS: Protein Smoothie (high protein) 240ml (8oz) cup PO SCH ×3 (08:00→18:00)
[2017-11-16 08:29] LABS: BASOPHILS % (AUTO) 0 % (0-1); EOSINOPHILS # (AUTO) 0.1 X10'3 (0-0.9); HEMATOCRIT 22.9 % (35.0-45.0); HEMOGLOBIN 7.6 g/dl (12.0-16.0); LYMPHOCYTES # (AUTO) 0.3 X10'3 (1.1-4.8); LYMPHOCYTES % (AUTO) 4.4 % (21-51); MEAN CORPUSCULAR HEMOGLOBIN 28.7 PG (27.0-31.0); MEAN CORPUSCULAR VOLUME 86.9 FL (78-98); MEAN PLATELET VOLUME 8.6 FL (7.4-10.4); MONOCYTES # (AUTO) 0.2 X10'3 (0-0.9); MONOCYTES % (AUTO) 3.4 % (2-12); NEUTROPHILS # (AUTO) 5.3 X10'3 (1.8-7.7); NEUTROPHILS % (AUTO) 91.2 % (42-75); PLATELET COUNT 83 X10'3 (140-440); RED BLOOD COUNT 2.64 X10'6 (4.20-5.60); RED CELL DISTRIBUTION WIDTH 19.2 % (11.5-14.5); WHITE BLOOD COUNT 5.8 X10'3 (4.5-11.0)
[2017-11-16] MEDS: pantoprazole 40mg Tablet.DR PO SCH (09:40)
[2017-11-16] MEDS: azithromycin 250mg tablet PO SCH (09:40)
[2017-11-16] MEDS: lactobacillus rhamnosus 10,000 MMU CELLS/CAPSULE PO SCH ×2 (09:40→20:06)
[2017-11-16] MEDS: CefTRIAXone/D5W-Rocephin 1gm 50 ML IV SCH (09:40)
[2017-11-16] MEDS: acetaZOLAMIDE 250mg tablet PO SCH ×2 (09:42→20:06)
[2017-11-16] MEDS: heparin, porcine 5000 units/ml vial SQ SCH ×2 (09:42→20:06)
[2017-11-16] MEDS: LACTOSE-FREE FOOD 237ML (BOOST) PO SCH ×3 (09:46→18:42)
[2017-11-16] MEDS: insulin Lispro (HumaLOG) vial - multi-dose SQ SCH ×3 (10:04→18:50)
[2017-11-16 11:00] VITALS: BP 125/63
[2017-11-16 12:03] LABS: ALANINE AMINOTRANSFERASE 117 U/L (12-78); ALBUMIN 2.7 G/DL (3.4-5.0); ALBUMIN/GLOBULIN RATIO 1.1 (1.1-1.5); ALKALINE PHOSPHATASE 86 IU/L (46-116); ASPARTATE AMINO TRANSFERASE 21 U/L (10-37); BILIRUBIN,TOTAL 0.6 MG/DL (0.1-1.0); BLOOD UREA NITROGEN 22 MG/DL (7-18); CHLORIDE 99 MMOL/L (99-107); CREATININE 0.44 MG/DL (0.40-0.90); GLUCOSE 208 MG/DL (70-104); MAGNESIUM 1.8 MG/DL (1.5-2.4); POTASSIUM 3.6 MMOL/L (3.5-5.1); SODIUM 146 MMOL/L (135-145); TOTAL PROTEIN 5.1 G/DL (6.4-8.2); eGFR > 90 ML/MIN
[2017-11-16 12:08] LABS: ANION GAP -3 (8-16); TOTAL CARBON DIOXIDE 49.6 MMOL/L (24-32)
[2017-11-16] MEDS: dextrose 5%-water 1,000 ML IV SCH (14:51)
[2017-11-16 15:00] VITALS: BP 133/71
[2017-11-16 18:00] VITALS: BP 156/68
[2017-11-16] MEDS: insulin glargine (Lantus) pen - multi-dose SQ SCH (21:00)
[2017-11-16] MEDS: dextrose ORAL solution 15 GM/59 ML bottle PO PRN (21:17)
[2017-11-16 22:00] VITALS: BP 119/60
[2017-11-17 02:00] VITALS: BP 107/53
[2017-11-17] MEDS: methylPREDNISolone sod succ/PF 40mg inj. IV SCH ×4 (02:04→19:15)
[2017-11-17] MEDS: ipratropium/albuterol 3ml nebule NEB SCH ×6 (03:00→23:03)
[2017-11-17 07:00] VITALS: BP 110/48
[2017-11-17] MEDS: K, MAG and/or Phos replacement - Verify level? MC SCH (08:00)
[2017-11-17] MEDS: CefTRIAXone/D5W-Rocephin 1gm 50 ML IV SCH (08:09)
[2017-11-17] MEDS: lactobacillus rhamnosus 10,000 MMU CELLS/CAPSULE PO SCH ×2 (08:10→19:13)
[2017-11-17] MEDS: acetaZOLAMIDE 250mg tablet PO SCH ×2 (08:10→19:13)
[2017-11-17] MEDS: azithromycin 250mg tablet PO SCH (08:10)
[2017-11-17] MEDS: Protein Smoothie (high protein) 240ml (8oz) cup PO SCH ×3 (08:10→18:00)
[2017-11-17] MEDS: pantoprazole 40mg Tablet.DR PO SCH (08:10)
[2017-11-17] MEDS: heparin, porcine 5000 units/ml vial SQ SCH ×2 (08:10→19:54)
[2017-11-17] MEDS: LACTOSE-FREE FOOD 237ML (BOOST) PO SCH ×3 (08:10→18:30)
[2017-11-17 08:32] LABS: BASOPHILS % (AUTO) 0.1 % (0-1); EOSINOPHILS % (AUTO) 0.8 % (0-6); HEMATOCRIT 23.2 % (35.0-45.0); HEMOGLOBIN 7.7 g/dl (12.0-16.0); LYMPHOCYTES # (AUTO) 0.2 X10'3 (1.1-4.8); LYMPHOCYTES % (AUTO) 4.3 % (21-51); MEAN CORPUSCULAR HEMOGLOBIN 28.9 PG (27.0-31.0); MEAN CORPUSCULAR HGB CONC 33.2 % (33.0-36.5); MEAN PLATELET VOLUME 8.8 FL (7.4-10.4); MONOCYTES # (AUTO) 0.2 X10'3 (0-0.9); MONOCYTES % (AUTO) 3.9 % (2-12); NEUTROPHILS # (AUTO) 4.7 X10'3 (1.8-7.7); NEUTROPHILS % (AUTO) 90.9 % (42-75); PLATELET COUNT 84 X10'3 (140-440); RED BLOOD COUNT 2.66 X10'6 (4.20-5.60); RED CELL DISTRIBUTION WIDTH 18.4 % (11.5-14.5); WHITE BLOOD COUNT 5.2 X10'3 (4.5-11.0)
[2017-11-17] MEDS: dextrose 5%-water 1,000 ML IV SCH (08:42)
[2017-11-17 08:53] LABS: ALANINE AMINOTRANSFERASE 96 U/L (12-78); ALBUMIN 2.5 G/DL (3.4-5.0); ALKALINE PHOSPHATASE 135 IU/L (46-116); ANION GAP -1 (8-16); ASPARTATE AMINO TRANSFERASE 22 U/L (10-37); BILIRUBIN,TOTAL 0.5 MG/DL (0.1-1.0); BLOOD UREA NITROGEN 21 MG/DL (7-18); BUN/CREATININE RATIO 45.7 (6.6-38.0); CALCIUM 9.2 MG/DL (8.5-10.1); CHLORIDE 101 MMOL/L (99-107); CREATININE 0.46 MG/DL (0.40-0.90); GLUCOSE 310 MG/DL (70-104); POTASSIUM 3.6 MMOL/L (3.5-5.1); SODIUM 143 MMOL/L (135-145); eGFR > 90 ML/MIN
[2017-11-17 11:00] VITALS: BP 112/53
[2017-11-17] MEDS: insulin Lispro (HumaLOG) vial - multi-dose SQ SCH (13:21)
[2017-11-17 15:00] VITALS: BP 127/63
[2017-11-17 18:00] VITALS: BP 111/61
[2017-11-17] MEDS: insulin glargine (Lantus) pen - multi-dose SQ SCH (20:38)
[2017-11-17 22:00] VITALS: BP 115/60
[2017-11-18 02:00] VITALS: BP 115/61
[2017-11-18] MEDS: methylPREDNISolone sod succ/PF 40mg inj. IV SCH ×4 (02:42→19:16)
[2017-11-18] MEDS: ipratropium/albuterol 3ml nebule NEB SCH ×5 (03:13→22:50)
[2017-11-18] MEDS: dextrose 5%-water 1,000 ML IV SCH (04:42)
[2017-11-18 06:37] VITALS: BP 103/54
[2017-11-18] MEDS: pantoprazole 40mg Tablet.DR PO SCH (07:16)
[2017-11-18] MEDS: CefTRIAXone/D5W-Rocephin 1gm 50 ML IV SCH (07:16)
[2017-11-18] MEDS: lactobacillus rhamnosus 10,000 MMU CELLS/CAPSULE PO SCH ×2 (07:16→19:16)
[2017-11-18] MEDS: acetaZOLAMIDE 250mg tablet PO SCH ×2 (07:16→19:16)
[2017-11-18] MEDS: heparin, porcine 5000 units/ml vial SQ SCH ×2 (07:17→19:24)
[2017-11-18] MEDS: azithromycin 250mg tablet PO SCH (07:17)
[2017-11-18 07:22] LABS: BASOPHILS % (AUTO) 0.1 % (0-1); EOSINOPHILS % (AUTO) 0 % (0-6); HEMATOCRIT 23.3 % (35.0-45.0); HEMOGLOBIN 7.8 g/dl (12.0-16.0); LYMPHOCYTES # (AUTO) 0.3 X10'3 (1.1-4.8); LYMPHOCYTES % (AUTO) 6.4 % (21-51); MEAN CORPUSCULAR HEMOGLOBIN 28.9 PG (27.0-31.0); MEAN CORPUSCULAR HGB CONC 33.3 % (33.0-36.5); MEAN CORPUSCULAR VOLUME 86.9 FL (78-98); MEAN PLATELET VOLUME 8.3 FL (7.4-10.4); MONOCYTES # (AUTO) 0.3 X10'3 (0-0.9); MONOCYTES % (AUTO) 6.1 % (2-12); NEUTROPHILS # (AUTO) 3.7 X10'3 (1.8-7.7); NEUTROPHILS % (AUTO) 87.4 % (42-75); PLATELET COUNT 79 X10'3 (140-440); RED BLOOD COUNT 2.68 X10'6 (4.20-5.60); RED CELL DISTRIBUTION WIDTH 19.1 % (11.5-14.5); WHITE BLOOD COUNT 4.3 X10'3 (4.5-11.0)
[2017-11-18 07:45] LABS: ALANINE AMINOTRANSFERASE 86 U/L (12-78); ALBUMIN 2.5 G/DL (3.4-5.0); ALKALINE PHOSPHATASE 129 IU/L (46-116); ANION GAP 0 (8-16); ASPARTATE AMINO TRANSFERASE 16 U/L (10-37); BILIRUBIN,TOTAL 0.4 MG/DL (0.1-1.0); BLOOD UREA NITROGEN 27 MG/DL (7-18); BUN/CREATININE RATIO 77.1 (6.6-38.0); CALCIUM 8.9 MG/DL (8.5-10.1); CHLORIDE 110 MMOL/L (99-107); CREATININE 0.35 MG/DL (0.40-0.90); GLUCOSE 242 MG/DL (70-104); POTASSIUM 4.1 MMOL/L (3.5-5.1); SODIUM 148 MMOL/L (135-145); TOTAL CARBON DIOXIDE 37.8 MMOL/L (24-32); TOTAL PROTEIN 4.9 G/DL (6.4-8.2); eGFR > 90 ML/MIN
[2017-11-18] MEDS: LACTOSE-FREE FOOD 237ML (BOOST) PO SCH ×3 (08:00→18:00)
[2017-11-18] MEDS: Protein Smoothie (high protein) 240ml (8oz) cup PO SCH ×3 (08:00→18:00)
[2017-11-18] MEDS: K, MAG and/or Phos replacement - Verify level? MC SCH (08:00)
[2017-11-18] MEDS: insulin Lispro (HumaLOG) vial - multi-dose SQ SCH ×2 (08:45→13:25)
[2017-11-18 11:00] VITALS: BP 120/58
[2017-11-18 15:00] VITALS: BP 115/65
[2017-11-18 18:30] VITALS: BP 131/63
[2017-11-18] MEDS: insulin glargine (Lantus) pen - multi-dose SQ SCH (21:08)
[2017-11-18 22:00] VITALS: BP 124/53
[2017-11-19] MEDS: dextrose 5%-water 1,000 ML IV SCH (00:42)
[2017-11-19 02:00] VITALS: BP 114/68
[2017-11-19] MEDS: methylPREDNISolone sod succ/PF 40mg inj. IV SCH ×2 (02:45→08:00)
[2017-11-19] MEDS: ipratropium/albuterol 3ml nebule NEB SCH ×4 (03:17→23:36)
[2017-11-19 06:00] VITALS: BP 118/53
[2017-11-19] MEDS: pantoprazole 40mg Tablet.DR PO SCH (07:30)
[2017-11-19] MEDS: acetaZOLAMIDE 250mg tablet PO SCH ×2 (08:00→19:13)
[2017-11-19] MEDS: lactobacillus rhamnosus 10,000 MMU CELLS/CAPSULE PO SCH ×2 (08:00→19:13)
[2017-11-19] MEDS: LACTOSE-FREE FOOD 237ML (BOOST) PO SCH ×3 (08:00→17:19)
[2017-11-19] MEDS: CefTRIAXone/D5W-Rocephin 1gm 50 ML IV SCH (08:00)
[2017-11-19] MEDS: Protein Smoothie (high protein) 240ml (8oz) cup PO SCH ×3 (08:00→17:19)
[2017-11-19] MEDS: heparin, porcine 5000 units/ml vial SQ SCH ×2 (08:00→19:35)
[2017-11-19] MEDS: azithromycin 250mg tablet PO SCH (08:00)
[2017-11-19] MEDS: K, MAG and/or Phos replacement - Verify level? MC SCH (08:00)
[2017-11-19 09:13] LABS: ALANINE AMINOTRANSFERASE 81 U/L (12-78); ALBUMIN 2.5 G/DL (3.4-5.0); ALBUMIN/GLOBULIN RATIO 0.9 (1.1-1.5); ALKALINE PHOSPHATASE 150 IU/L (46-116); ASPARTATE AMINO TRANSFERASE 19 U/L (10-37); BILIRUBIN,TOTAL 0.4 MG/DL (0.1-1.0); BLOOD UREA NITROGEN 25 MG/DL (7-18); BUN/CREATININE RATIO 53.2 (6.6-38.0); CALCIUM 9.1 MG/DL (8.5-10.1); CHLORIDE 106 MMOL/L (99-107); CREATININE 0.47 MG/DL (0.40-0.90); GLUCOSE 331 MG/DL (70-104); MAGNESIUM 2.1 MG/DL (1.5-2.4); PHOSPHORUS 2.4 MG/DL (2.3-4.5); POTASSIUM 4.7 MMOL/L (3.5-5.1); TOTAL PROTEIN 5.2 G/DL (6.4-8.2); eGFR > 90 ML/MIN
[2017-11-19 09:14] LABS: SODIUM 144 MMOL/L (135-145)
[2017-11-19 09:23] LABS: OCCULT BLOOD STOOL NEGATIVE (Neg)
[2017-11-19] MEDS: insulin Lispro (HumaLOG) vial - multi-dose SQ SCH ×3 (10:12→19:25)
[2017-11-19 10:44] LABS: ANION GAP 2 (8-16); TOTAL CARBON DIOXIDE 35.8 MMOL/L (24-32)
[2017-11-19 11:00] VITALS: BP 129/52
[2017-11-19] MEDS: prednisone 10mg tablet PO SCH (12:07)
[2017-11-19 15:00] VITALS: BP 128/66
[2017-11-19 18:30] VITALS: BP 162/79
[2017-11-19] MEDS: insulin glargine (Lantus) pen - multi-dose SQ SCH (21:23)
[2017-11-19 22:00] VITALS: BP 116/58
[2017-11-20] VITALS (11 sets, daily range): BP systolic 88–132; BP diastolic 40–98
[2017-11-20] MEDS: ipratropium/albuterol 3ml nebule NEB SCH ×6 (03:55→23:23)
[2017-11-20] MEDS: dextrose ORAL solution 15 GM/59 ML bottle PO PRN ×2 (07:07→07:35)
[2017-11-20] MEDS: CefTRIAXone/D5W-Rocephin 1gm 50 ML IV SCH (07:15)
[2017-11-20] MEDS: azithromycin 250mg tablet PO SCH (07:37)
[2017-11-20] MEDS: prednisone 10mg tablet PO SCH (07:37)
[2017-11-20] MEDS: acetaZOLAMIDE 250mg tablet PO SCH ×2 (07:37→19:45)
[2017-11-20] MEDS: lactobacillus rhamnosus 10,000 MMU CELLS/CAPSULE PO SCH ×2 (07:37→19:46)
[2017-11-20] MEDS: pantoprazole 40mg Tablet.DR PO SCH (07:37)
[2017-11-20] MEDS: Protein Smoothie (high protein) 240ml (8oz) cup PO SCH ×3 (07:43→18:02)
[2017-11-20] MEDS: LACTOSE-FREE FOOD 237ML (BOOST) PO SCH ×3 (07:43→18:02)
[2017-11-20] MEDS: K, MAG and/or Phos replacement - Verify level? MC SCH (08:00)
[2017-11-20] MEDS: heparin, porcine 5000 units/ml vial SQ SCH ×2 (08:00→19:48)
[2017-11-20 11:10] LABS: ALANINE AMINOTRANSFERASE 86 U/L (12-78); ALBUMIN 2.6 G/DL (3.4-5.0); ALKALINE PHOSPHATASE 129 IU/L (46-116); ANION GAP -2 (8-16); ASPARTATE AMINO TRANSFERASE 29 U/L (10-37); BILIRUBIN,TOTAL 0.3 MG/DL (0.1-1.0); BLOOD UREA NITROGEN 28 MG/DL (7-18); BUN/CREATININE RATIO 51.9 (6.6-38.0); CALCIUM 9.8 MG/DL (8.5-10.1); CHLORIDE 105 MMOL/L (99-107); CREATININE 0.54 MG/DL (0.40-0.90); GLUCOSE 284 MG/DL (70-104); MAGNESIUM 2.1 MG/DL (1.5-2.4); PHOSPHORUS 3.1 MG/DL (2.3-4.5); POTASSIUM 3.8 MMOL/L (3.5-5.1); SODIUM 146 MMOL/L (135-145); TOTAL PROTEIN 5.2 G/DL (6.4-8.2); eGFR > 90 ML/MIN
[2017-11-20 11:12] LABS: TOTAL CARBON DIOXIDE 42.8 MMOL/L (24-32)
[2017-11-20] MEDS: insulin Lispro (HumaLOG) vial - multi-dose SQ SCH ×3 (13:22→21:10)
[2017-11-21] VITALS (9 sets, daily range): BP systolic 90–120; BP diastolic 47–73
[2017-11-21] MEDS ORDERED: nitroGLYCERIN 0.4mg SUBLingual tab SL PRN (02:10)
[2017-11-21 02:46] LABS: ALANINE AMINOTRANSFERASE 83 U/L (12-78); ALBUMIN 2.4 G/DL (3.4-5.0); ALKALINE PHOSPHATASE 129 IU/L (46-116); ANION GAP -5 (8-16); ASPARTATE AMINO TRANSFERASE 21 U/L (10-37); BILIRUBIN,TOTAL 0.4 MG/DL (0.1-1.0); BLOOD UREA NITROGEN 28 MG/DL (7-18); BUN/CREATININE RATIO 73.7 (6.6-38.0); CALCIUM 9.3 MG/DL (8.5-10.1); CHLORIDE 107 MMOL/L (99-107); CREATININE 0.38 MG/DL (0.40-0.90); GLUCOSE 63 MG/DL (70-104); MAGNESIUM 2.2 MG/DL (1.5-2.4); PHOSPHORUS 2.4 MG/DL (2.3-4.5); POTASSIUM 4.4 MMOL/L (3.5-5.1); SODIUM 144 MMOL/L (135-145); TOTAL PROTEIN 4.8 G/DL (6.4-8.2); TROPONIN I 0.08 NG/ML (0.0-0.05); eGFR > 90 ML/MIN
[2017-11-21 02:52] LABS: TOTAL CARBON DIOXIDE 41.6 MMOL/L (24-32)
[2017-11-21] MEDS: ipratropium/albuterol 3ml nebule NEB SCH ×3 (03:19→10:50)
[2017-11-21] MEDS: pantoprazole 40mg Tablet.DR PO SCH (07:49)
[2017-11-21] MEDS: lactobacillus rhamnosus 10,000 MMU CELLS/CAPSULE PO SCH (07:50)
[2017-11-21] MEDS: acetaZOLAMIDE 250mg tablet PO SCH (07:50)
[2017-11-21] MEDS: heparin, porcine 5000 units/ml vial SQ SCH (08:00)
[2017-11-21] MEDS: Protein Smoothie (high protein) 240ml (8oz) cup PO SCH ×2 (08:00→13:00)
[2017-11-21] MEDS: K, MAG and/or Phos replacement - Verify level? MC SCH (08:00)
[2017-11-21] MEDS: LACTOSE-FREE FOOD 237ML (BOOST) PO SCH ×2 (08:00→13:29)
[2017-11-21] MEDS ORDERED: predniSONE 20 mg tablet PO SCH (08:30)
[2017-11-21] MEDS ORDERED: IPRA3AMP9 NEB ×2 (15:16)
[2017-11-21] MEDS ORDERED: HEPA500017 SQ (15:16)
[2017-11-21] MEDS ORDERED: PRED20TA PO (15:16)
== END 2017-11-21 17:02 | DRG 720 ==
LOC: ER 03:33 → ED HOLD 06:29 → ICU 2S 07:37 → MED 3N 11-02 13:15 → ICU 2S 11-03 10:03 → PCU 3S 11-07 14:00 → ICU 2S 11-11 20:08 → PCU 3S 11-15 00:15
PROVIDERS: ADMIT Internal Medicine Critical Care Medicine; ATTEND Internal Medicine Critical Care Medicine
PROC: 5A1945Z Respiratory Ventilation, 24-96 Consecutive Hours (ICD-10-PCS; principal; 2017-10-29)
PROC: 0BH17EZ Insertion of Endotracheal Airway into Trachea, Via Natural or Artificial Opening (ICD-10-PCS; 2017-10-29)
PROC: 02HV33Z Insertion of Infusion Device into Superior Vena Cava, Percutaneous Approach (ICD-10-PCS; 2017-10-29)
PROC: B548ZZA Ultrasonography of Superior Vena Cava, Guidance (ICD-10-PCS; 2017-10-29)
PROC: 5A1945Z Respiratory Ventilation, 24-96 Consecutive Hours (ICD-10-PCS; 2017-11-03)
PROC: 0BH17EZ Insertion of Endotracheal Airway into Trachea, Via Natural or Artificial Opening (ICD-10-PCS; 2017-11-03)
PROC: 5A09457 Assistance with Respiratory Ventilation, 24-96 Consecutive Hours, Continuous Positive Airway Pressure (ICD-10-PCS; 2017-11-09)
DX: A41.9 Sepsis, unspecified organism (principal); J96.21 Acute and chronic respiratory failure with hypoxia; I47.2 Ventricular tachycardia; J18.9 Pneumonia, unspecified organism; E87.0 Hyperosmolality and hypernatremia; E87.4 Mixed disorder of acid-base balance; J96.22 Acute and chronic respiratory failure with hypercapnia; D64.9 Anemia, unspecified; F41.9 Anxiety disorder, unspecified; J44.0 Chronic obstructive pulmonary disease with (acute) lower respiratory infection; R74.8 Abnormal levels of other serum enzymes; J44.1 Chronic obstructive pulmonary disease with (acute) exacerbation; Z68.20 Body mass index [BMI] 20.0-20.9, adult; Z79.51 Long term (current) use of inhaled steroids; Z79.899 Other long term (current) drug therapy; Z88.5 Allergy status to narcotic agent
CPT/HCPCS: 36415; 36569; 36600; 70450; 71045; 76937; 80053; 80305; 81001; 82272; 82607; 82746; 82803; 82948; 83036; 83540; 83550; 83605; 83735; 83880; 84100; 84132; 84134; 84145; 84443; 84484; 85018; 85025; 85610; 85730; 87040; 87070; 87077; 87186; 93005; 93306; 94002; 94003; 94640; 94660; 94760; 96365; 96366; 96368; 96375; 97110; 97116; 97161; 97530; 99291; A4315; A6213; A6257; A6449; A7015; C1758; C9113; J0282; J0456; J0692; J0696; J1120; J1644; J1815; J1940; J1956; J2020; J2250; J2270; J2274; J2920; J2930; J3010; J3475; J3480; J3490; J7030; J7042; J7060; J7070; J7120; J7512